=== PATIENT | male | born 1980 | race Caucasian/White ===

== ENCOUNTER 2017-10-22 14:14 | Emergency (ER) | payer BC ==
--- NOTE | 2017-10-22 16:11 | RAD REPORT ---
EXAM DESCRIPTION: RAD - Lumbar Spine 3 Views - 10/22/2017 3:17 pm CLINICAL HISTORY: Back pain, twisting injury COMPARISON: None. FINDINGS: A three-view lumbar spine examination was performed. Lumbar bodies are normal in height an d alignment. No fracture or acute bony process seen. No lumbar disc space narrowing seen. There is di sc space narrowing and endplate spurring at the T11-12 level. No SI joint abnormality. No pars defect s identified. IMPRESSION: No lumbar spine abnormality seen. Disc and endplate degenerative change at T11-12.
--- NOTE | 2017-10-22 17:35 | ER ---
Nurse's Notes [facility] Name: Alfie Luque Age: 37 yrs Sex: Male : 1980 Arrival Date: 10/22/2017 Time: 14:16 Bed 30 Private MD: Domenica Knight H Diagnosis: Low back pain;Sciatica, left side Presentation: 10/22 14:31 Presenting complaint: Patient states: last night i was doing cat box and twisted and hj felt pain on my lower back; denies tingling, numbness on legs;. Transition of care: patient was not received from another setting of care. Onset of symptoms was October 22, 2017. Care prior to arrival: None. 14:31 Method Of Arrival: Ambulatory 14:31 Acuity: LAKEISHA 4 hj Triage Assessment: 14:32 General: Appears in no apparent distress. uncomfortable, Behavior is calm, cooperative, hj appropriate for age. Pain: Complains of pain in left low back and right low back. Musculoskeletal: Circulation, motion, and sensation intact. Historical: - Allergies: 14:32 NKDA; hj - Home Meds: 14:32 None [Active]; hj - PMHx: 14:32 None; hj - PSHx: 14:32 oral; hj - Immunization history:: Flu vaccine is up to date. - Social history:: Smoking status: Patient uses tobacco products, smokes one-half pack cigarettes per day. - Family history:: not pertinent. Screenin:30 Abuse screen: Denies threats or abuse. Nutritional screening: No deficits noted. kb1 Tuberculosis screening: No symptoms or risk factors identified. Fall Risk None identified. Assessment: 16:28 General: Appears uncomfortable, Behavior is calm, cooperative. Pain: Complains of pain kb1 in lower back, left leg. Neuro: Level of Consciousness is awake, alert, obeys commands, Oriented to person, place, time, situation. Cardiovascular: Patient's skin is warm and dry. Respiratory: Respiratory effort is even, unlabored, Respiratory pattern is regular, symmetrical. GI: No signs and/or symptoms were reported involving the gastrointestinal system. : No signs and/or symptoms were reported regarding the genitourinary system. Musculoskeletal: Reports pain in lower back, shooting down left leg. Injury Description: reports that he bent over and reached for something and felt a sharp pain in his back. 17:42 Reassessment: Patient and/or family updated on plan of care and expected duration. Pain kb1 level reassessed. Patient is alert, oriented x 3, equal unlabored respirations, skin warm/dry/pink. Vital Signs: 14:33 BP 156 / 97; Pulse 115; Resp 18; Temp 98.2(TE); Pulse Ox 97% on R/A; Weight 106.59 kg; hj Height 5 ft. 6 in. (167.64 cm); Pain 10/10; 16:31 BP 134 / 92; Pulse 114; Resp 20; Pulse Ox 98% ; kb1 18:10 BP 136 / 79; Pulse 107; Resp 18; Pulse Ox 98% ; kb1 14:33 Body Mass Index 37.93 (106.59 kg, 167.64 cm) ED Course: 14:16 Patient arrived in ED. rg4 14:16 Domenica Knight DO is Private Physician. rg4 14:31 Triage completed. hj 14:33 Arm band placed on left wrist. hj 15:07 Patient moved to radiology via wheelchair. 1 15:14 X-ray completed. Patient tolerated procedure well. Patient moved back from radiology. 1 16:22 Glenn Clemente MD is Attending Physician. [facility] 16:28 Cinthia Hines, SALVADOR is Primary Nurse. kb1 16:30 Patient has correct armband on for positive identification. Bed in low position. Call kb1 light in reach. Side rails up X 1. NIBP on. 16:30 No provider procedures requiring assistance completed. kb1 17:34 Domenica Knight DO is Referral Physician. [facility] 18:10 Patient did not have IV access during this emergency room visit. kb1 Administered Medications: 17:41 Drug: TORadol 60 mg Route: IM; Site: right deltoid; kb1 18:09 Follow up: Response: No adverse reaction; Pain is decreased kb1 Outcome: 17:35 Discharge ordered by . lalo 18:10 Discharged to home ambulatory. kb1 18:10 Condition: stable 18:10 Discharge instructions given to patient, Instructed on discharge instructions, follow up and referral plans. medication usage, Demonstrated understanding of instructions, follow-up care, medications, Prescriptions given X 4. 18:13 Patient left the ED. kb1 Signatures: Glenn Clemente MD MD cha Harvey, Martha 1 Dwayne Mendoza, RN RN Laura Serrato 4 Cinthia Hines RN RN kb1 Corrections: (The following items were deleted from the chart) 14:35 14:33 Pulse 120bpm; Resp 18bpm; Pulse Ox 97% RA; Temp 98.2F Temporal; 106.59 kg; Height hj 5 ft. 6 in.; BMI: 37.9; Pain 10/10; hj 14:36 14:33 Pulse 115bpm; Resp 18bpm; Pulse Ox 97% RA; Temp 98.2F Temporal; 106.59 kg; Height hj 5 ft. 6 in.; BMI: 37.9; Pain 10/10; hj
--- NOTE | 2017-10-22 17:35 | EDPHYS ---
Physician Documentation [facility] Name: Alfie Luque Age: 37 yrs Sex: Male : 1980 Arrival Date: 10/22/2017 Time: 14:16 Bed 30 Private MD: Domenica Knight H ED Physician Glenn Clemente HPI: 10/22 17:30 This 37 yrs old Male presents to ER via Ambulatory with complaints of Back lalo Pain. 17:30 The patient presents with pain that is acute. The symptoms are located in the low back, lalo lumbar area. Onset: The symptoms/episode began/occurred just prior to arrival, this morning. The pain radiates to the left low back and left mid back. Associated signs and symptoms: The patient has no apparent associated signs or symptoms. The problem was sustained when lifting from twisting. Modifying factors: The patient symptoms are alleviated by remaining still, rest, specific position, the patient symptoms are aggravated by any movement, bending, lifting, movement. Severity of symptoms: At their worst the symptoms were mild, in the emergency department the symptoms are unchanged. The patient has not experienced similar symptoms in the past. Historical: - Allergies: 14:32 NKDA; hj - Home Meds: 14:32 None [Active]; hj - PMHx: 14:32 None; hj - PSHx: 14:32 oral; hj - Immunization history:: Flu vaccine is up to date. - Social history:: Smoking status: Patient uses tobacco products, smokes one-half pack cigarettes per day. - Family history:: not pertinent. ROS: 17:30 Constitutional: Negative for fever, chills, and weight loss, Eyes: Negative for injury, lalo pain, redness, and discharge, ENT: Negative for injury, pain, and discharge, Neck: Negative for injury, pain, and swelling, Cardiovascular: Negative for chest pain, palpitations, and edema, Respiratory: Negative for shortness of breath, cough, wheezing, and pleuritic chest pain, Abdomen/GI: Negative for abdominal pain, nausea, vomiting, diarrhea, and constipation, : Negative for injury, bleeding, discharge, and swelling, MS/Extremity: Negative for injury and deformity, Skin: Negative for injury, rash, and discoloration, Neuro: Negative for headache, weakness, numbness, tingling, and seizure, Psych: Negative for depression, anxiety, suicide ideation, homicidal ideation, and hallucinations, Allergy/Immunology: Negative for hives, rash, and allergies, Endocrine: Negative for neck swelling, polydipsia, polyuria, polyphagia, and marked weight changes, Hematologic/Lymphatic: Negative for swollen nodes, abnormal bleeding, and unusual bruising. 17:30 Back: Positive for decreased range of motion, pain at rest, pain with movement, radiated pain, of the left low back. Exam: 17:30 Constitutional: This is a well developed, well nourished patient who is awake, alert, lalo and in no acute distress. Head/Face: Normocephalic, atraumatic. Eyes: Pupils equal round and reactive to light, extra-ocular motions intact. Lids and lashes normal. Conjunctiva and sclera are non-icteric and not injected. Cornea within normal limits. Periorbital areas with no swelling, redness, or edema. ENT: Nares patent. No nasal discharge, no septal abnormalities noted. Tympanic membranes are normal and external auditory canals are clear. Oropharynx with no redness, swelling, or masses, exudates, or evidence of obstruction, uvula midline. Mucous membranes moist. Neck: Trachea midline, no thyromegaly or masses palpated, and no cervical lymphadenopathy. Supple, full range of motion without nuchal rigidity, or vertebral point tenderness. No Meningismus. Chest/axilla: Normal chest wall appearance and motion. Nontender with no deformity. No lesions are appreciated. Cardiovascular: Regular rate and rhythm with a normal S1 and S2. No gallops, murmurs, or rubs. Normal PMI, no JVD. No pulse deficits. Respiratory: Lungs have equal breath sounds bilaterally, clear to auscultation and percussion. No rales, rhonchi or wheezes noted. No increased work of breathing, no retractions or nasal flaring. Abdomen/GI: Soft, non-tender, with normal bowel sounds. No distension or tympany. No guarding or rebound. No evidence of tenderness throughout. Male : Normal genitalia with no discharge or lesions. Skin: Warm, dry with normal turgor. Normal color with no rashes, no lesions, and no evidence of cellulitis. MS/ Extremity: Pulses equal, no cyanosis. Neurovascular intact. Full, normal range of motion. Neuro: Awake and alert, GCS 15, oriented to person, place, time, and situation. Cranial nerves II-XII grossly intact. Motor strength 5/5 in all extremities. Sensory grossly intact. Cerebellar exam normal. Normal gait. Psych: Awake, alert, with orientation to person, place and time. Behavior, mood, and affect are within normal limits. 17:30 Back: pain, that is moderate, ROM is decreased, normal spinal alignment noted, CVA tenderness, is absent, muscle spasm, is appreciated in the left low back, left mid back, right mid back and right low back. Vital Signs: 14:33 BP 156 / 97; Pulse 115; Resp 18; Temp 98.2(TE); Pulse Ox 97% on R/A; Weight 106.59 kg; hj Height 5 ft. 6 in. (167.64 cm); Pain 10/10; 16:31 BP 134 / 92; Pulse 114; Resp 20; Pulse Ox 98% ; kb1 18:10 BP 136 / 79; Pulse 107; Resp 18; Pulse Ox 98% ; kb1 14:33 Body Mass Index 37.93 (106.59 kg, 167.64 cm) MDM: 16:24 Patient medically screened. [facility] 17:30 Data reviewed: vital signs, nurses notes, lab test result(s), radiologic studies, plain lalo films. 10/22 17:40 Order name: Urine Dipstick--Ancillary (enter results) 10/22 17:52 Order name: Urine Dipstick-Ancillary [facility] 10/22 15:03 Order name: XRAY Lumbar Spine (3 Views) nm 10/22 16:12 Order name: RAD; Complete Time: 17:28 [facility] 10/22 16:55 Order name: Urine Dipstick-Ancillary (obtain specimen); Complete Time: 17:38 Administered Medications: 17:41 Drug: TORadol 60 mg Route: IM; Site: right deltoid; kb1 18:09 Follow up: Response: No adverse reaction; Pain is decreased kb1 Disposition: 10/22/17 17:35 Discharged to Home. Impression: Low back pain, Sciatica, left side. - Condition is Stable. - Discharge Instructions: Back Pain, Adult, Musculoskeletal Pain, Sciatica, Back Injury Prevention, [id number], Back Pain, Adult, [id number], Sciatica, [id number]. - Prescriptions for Ibuprofen 600 mg Oral Tablet - take 1 tablet by ORAL route every 6 hours As needed take with food; 20 tablet. Tylenol- Codeine #3 300-30 mg Oral Tablet - take 2 tablet by ORAL route every 6 hours As needed; 30 tablet. Valium 5 mg Oral Tablet - take 1 tablet by ORAL route every 8 hours As needed; 20 tablet. Medrol (Bandar) 4 mg Oral Tablets, Dose Pack - take 1 tablet by ORAL route as directed - follow package instructions; 1 packet. - Medication Reconciliation Form, Thank You Letter, Antibiotic Education, Prescription Opioid Use form. - Follow up: Domenica Knight DO; When: 2 - 3 days; Reason: Recheck today's complaints, Continuance of care, Re-evaluation by your physician. - Problem is new. - Symptoms have improved. Signatures: Dispatcher [employer] EDGlenn Gonzalez MD MD cha Williams, Irene RN SALVADOR iw Dwayne Mendoza RN Cinthia Reyna RN RN kb1
[2017-10-22 17:51] LABS: Urine Blood NEGATIVE (NEG); Urine Glucose NEGATIVE (NEG); Urine Protein TRACE (NEG); Urine Specific Gravity 1.025 (1.005-1.030)
[2017-10-22] MEDS ORDERED: KETOROLAC 30 MG/ML INJ ONE (17:57)
== END 2017-10-22 18:13 | disposition home or self-care (01) ==
LOC: ER 14:14
DX: M54.32 Sciatica, left side; M54.5 Low back pain
CPT/HCPCS: 72100; 81003; 96372; 99283

== ENCOUNTER 2018-05-14 12:26 | Inpatient (IN) | payer BC ==
[2018-05-14] MEDS ORDERED: IBUPROFEN 400 MG TAB ONE ×2 (13:03→22:51)
[2018-05-14] MEDS ORDERED: IBUPROFEN 200 MG TAB PO ONE ×2 (13:03→22:51)
[2018-05-14] MEDS ORDERED: ACETAMINOPHEN 325 MG TABLET ONE (13:03)
--- NOTE | 2018-05-14 14:53 | RAD REPORT ---
EXAM DESCRIPTION: CT - Head Brain Wo Cont - 05/14/2018 2:35 pm CLINICAL HISTORY: Fever, headache COMPARISON: None. TECHNIQUE: Axial 5 mm thick images of the head were obtained without IV contrast. All CT scans are performed using dose optimization technique as appropriate and may include automated exposure control or mA/KV adjustment according to patient size. FINDINGS: No intracranial hemorrhage, mass, edema or shift of mid-line structures. No acute infarcti on changes seen. No abnormal extra-axial fluid collections. No effacement of the ventricles or basila r cisterns. Cerebral edema is not suspected. Relative increase in density along the tentorium is a sy mmetric pattern in a normal variant. Hemorrhage is not suspected. Mastoid air cells and visualized portions of the paranasal sinuses are clear. No acute bony findings. IMPRESSION: Negative non-contrast CT head examination for acute or significant finding.
[2018-05-14] MEDS ORDERED: ONDANSETRON 4 MG/2 ML VIAL ONE (14:56)
[2018-05-14] MEDS ORDERED: NA CHLORIDE 0.9% 1,000 ML ONE ×3 (14:56→21:05)
[2018-05-14 15:17] LABS: Absolute Lymphocytes (CBC) 0.6 K/uL (0.7-4.9); Absolute Monocytes 0.4 K/uL (0.1-1.3); Absolute Neutrophil 2.2 K/uL (1.8-8.0); Eosinophils % 0.1 % (0-4.4); Hematocrit 45.8 % (39.6-49.0); Lymphocytes % 19.3 % (15.3-44.8); MCH 31.4 pg (27.0-35.0); MCV 90.3 fL (80-100); Monocytes % 12.9 % (3.3-12.3); RBC Red Blood Cell Count 5.07 M/uL (4.33-5.43)
[2018-05-14 15:27] LABS: Albumin 3.9 g/dL (3.4-5.0); Bilirubin Direct 0.2 mg/dL (0-0.2); Bilirubin Total 0.8 mg/dL (0.2-1.0); Potassium 4.4 mmol/L (3.5-5.1); Protein, Total 8.2 g/dL (6.4-8.2)
[2018-05-14] MEDS ORDERED: MORPHINE 4 MG/ML SYR ONE (16:17)
[2018-05-14] MEDS ORDERED: LIDOCAINE 2% MPF 5 ML VIAL ONE ×2 (17:42→18:06)
[2018-05-14] MEDS ORDERED: HYDROMORPHONE HCL 0.5 MG/0.5 ML INJ ONE ×2 (18:26→22:28)
[2018-05-14 19:04] LABS: CSF Glucose 51 mg/dL (40-70)
[2018-05-14 19:34] LABS: Appearance CLEAR (CLEAR); Body Fluid Source CSF; Color of fluid Colorless (COLORLESS)
[2018-05-14 19:36] LABS: Body Fluid WBC 2 /mm^3
[2018-05-14 19:38] LABS: Appearance CLEAR (CLEAR); Body Fluid Source CSF; Body Fluid WBC 2 /mm^3; Color of fluid Colorless (COLORLESS); Fluid Total Volume 5.1 ml
--- NOTE | 2018-05-14 20:42 | RAD REPORT ---
EXAM DESCRIPTION: RAD - Chest Pa And Lat (2 Views) - 05/14/2018 8:37 pm CLINICAL HISTORY: fever, cough Chest pain. COMPARISON: CHEST PA AND LAT 2 VIEW dated 06/13/2013 FINDINGS: The lungs are clear. The heart is normal in size. No displaced fractures. IMPRESSION: No acute or concerning finding suspected.
[2018-05-14 20:59] LABS: Urine Blood NEGATIVE (NEG); Urine Glucose NEGATIVE (NEG); Urine Protein 1+ (NEG); Urine pH 6.5 (5.0-7.0)
--- NOTE | 2018-05-14 21:40 | ER ---
Nurse's Notes [facility] Name: Alfie Luqeu Age: 38 yrs Sex: Male : 1980 Arrival Date: 05/14/2018 Time: 12:30 Bed 20 Private MD: Domenica Knight H Diagnosis: Acute Febrile Illness;Headache Presentation: 05/14 12:58 Presenting complaint: Patient states: Body aches, fever, headache, cough since Thursday. aj Reports fever responds well to antipyretics. Last Tylenol at 0400 this AM. Transition of care: patient was not received from another setting of care. Onset of symptoms was May 10, 2018. Risk Assessment: Do you want to hurt yourself or someone else? Patient reports no desire to harm self or others. Initial Sepsis Screen: Does the patient meet any 2 criteria? No. Patient's initial sepsis screen is negative. Does the patient have a suspected source of infection? No. Patient's initial sepsis screen is negative. Care prior to arrival: None. 12:58 Method Of Arrival: Ambulatory 12:58 Acuity: LAKEISHA 4 aj Triage Assessment: 13:00 Headache History: The patient has had previous headaches. General: Appears in no aj apparent distress. comfortable, Behavior is calm, cooperative, appropriate for age. Pain: Complains of pain in face and scalp. EENT: Reports nasal congestion nasal discharge. Neuro: Level of Consciousness is awake, alert, obeys commands, Oriented to person, place, time, situation, Appropriate for age Supervisor Grower are equal bilaterally Moves all extremities. Full function Gait is steady, Speech is normal, Facial symmetry appears normal, Pupils are PERRLA, Reports headache. Respiratory: Reports cough that is Airway is patent Trachea midline Respiratory effort is even, unlabored, Respiratory pattern is regular, symmetrical. Derm: Skin is intact, is healthy with good turgor, Skin is pink, warm \T\ dry. normal. 05/15 00:53 Pain: Pain began 2-3 days ago. Also complains of sleeplessness. ao Historical: - Allergies: 05/14 13:00 NKDA; aj - Home Meds: 13:00 None [Active]; aj - PMHx: 13:00 None; aj - PSHx: 13:00 None; aj - Immunization history:: Adult Immunizations up to date. - Social history:: Smoking status: Patient/guardian denies using tobacco. - Ebola Screening: : Patient negative for fever greater than or equal to 101.5 degrees Fahrenheit, and additional compatible Ebola Virus Disease symptoms Patient denies exposure to infectious person Patient denies travel to an Ebola-affected area in the 21 days before illness onset No symptoms or risks identified at this time. Screenin:37 Abuse screen: Denies threats or abuse. Denies injuries from another. Nutritional iw screening: No deficits noted. Tuberculosis screening: No symptoms or risk factors identified. Fall Risk IV access (20 points). Assessment: 14:00 General: Appears in no apparent distress. uncomfortable, Behavior is calm, cooperative. iw General: Reports fever for > 3 days, feeling ill for fatigue for. Pain: Complains of pain in head Pain currently is 5 out of 10 on a pain scale. Neuro: Level of Consciousness is awake, alert, obeys commands, Oriented to person, place, time, situation, Moves all extremities. Full function. Cardiovascular: Patient's skin is warm and dry. Respiratory: Reports cough that is non-productive, dry, Respiratory effort is even, unlabored, Respiratory pattern is regular, symmetrical. GI: Patient currently denies diarrhea, nausea, vomiting. : Denies burning with urination. Derm: Skin is intact, is healthy with good turgor. Musculoskeletal: Range of motion: intact in all extremities. 15:28 Reassessment: Patient appears in no apparent distress at this time. Patient and/or iw family updated on plan of care and expected duration. Pain level reassessed. Patient is alert, oriented x 3, equal unlabored respirations, skin warm/dry/pink. 16:30 Reassessment: Patient appears in no apparent distress at this time. Patient and/or em family updated on plan of care and expected duration. Pain level reassessed. Patient is alert, oriented x 3, equal unlabored respirations, skin warm/dry/pink. 17:40 Reassessment: Patient appears in no apparent distress at this time. Patient and/or em family updated on plan of care and expected duration. Pain level reassessed. Patient is alert, oriented x 3, equal unlabored respirations, skin warm/dry/pink. 18:58 Reassessment: Patient appears in no apparent distress at this time. Patient and/or em family updated on plan of care and expected duration. Pain level reassessed. Patient is alert, oriented x 3, equal unlabored respirations, skin warm/dry/pink. rates pain 10/10. 19:15 Reassessment: Patient appears in no apparent distress at this time. Patient and/or cc3 family updated on plan of care and expected duration. Pain level reassessed. Patient is alert, oriented x 3, equal unlabored respirations, skin warm/dry/pink. Received this male patient from morning shift [facility] Wally as a case of headache and fever; LP was done as endorsed, patient lying comfortably in bed in supine position; with IV cannula gauge 20 at the right ACV saline locked. 20:49 Reassessment: Patient appears in no apparent distress at this time. Patient and/or cc3 family updated on plan of care and expected duration. Pain level reassessed. Patient is alert, oriented x 3, equal unlabored respirations, skin warm/dry/pink. 21:50 Reassessment: Discharge on hold for patient wants to have pain medication first, Dr. ryan Cross and JOHANNA Garay informed. 22:37 Reassessment: Patient appears in no apparent distress at this time. Patient and/or cc3 family updated on plan of care and expected duration. Pain level reassessed. Patient is alert, oriented x 3, equal unlabored respirations, skin warm/dry/pink. 23:19 Reassessment: Patient appears in no apparent distress at this time. Patient and/or cc3 family updated on plan of care and expected duration. Pain level reassessed. Patient is alert, oriented x 3, equal unlabored respirations, skin warm/dry/pink. temperature of 101.4 F, informed Dr. Cross new order was made and said he'll cancel the discharge order as of the meantime. 05/15 00:30 Reassessment: Patient appears in no apparent distress at this time. Patient and/or cc3 family updated on plan of care and expected duration. Pain level reassessed. Patient is alert, oriented x 3, equal unlabored respirations, skin warm/dry/pink. was about to put the patient on the monitor with ECG leads on for tachycardia monitoring explained but patient and relative refused and got irritated and said he wants another nurse, informed charge nurse Juliane and handed over the patient to SALVADOR Dunn. 00:48 Reassessment: Was notified by SALVADOR Alvarez that patient was unhappy with her and wanted ao a different nurse. Spoke to patient and patient is upset with nurse and ED durations. Patient got in the ED with fever arround 1200 on the 12th and had to stay with no changes in his fever. Charge nurse was notified os patient concerns. Dr Cross was also notified by charge nurse. Dr Cross to admitted patient o the hospital due to fever not coming down. Vital Signs: 05/14 13:00 BP 116 / 90; Pulse 133; Resp 20; Temp 100.6; Pulse Ox 98% on R/A; Weight 104.33 kg; aj Height 5 ft. 6 in. (167.64 cm); 14:12 BP 123 / 78; Pulse 127; Resp 18; Temp 99.3(O); Pulse Ox 98% on R/A; Pain 5/10; iw 15:15 BP 125 / 86; Pulse 109; Resp 18; Pulse Ox 98% on R/A; Pain 5/10; iw 16:30 BP 114 / 60; Pulse 110; Resp 16; Pulse Ox 97% on R/A; Pain 5/10; iw 17:00 BP 115 / 68; Pulse 102; Resp 18; Pulse Ox 99% on R/A; em 18:23 BP 113 / 83; Pulse 102; Resp 16; Temp 98.6(O); Pulse Ox 99% on R/A; Pain 7/10; em 19:30 BP 128 / 80; Pulse 100; Resp 20 S; Temp 98.3(O); Pulse Ox 100% on R/A; Pain 4/10; cc3 20:07 BP 116 / 78; Pulse 102; Resp 20 S; Pulse Ox 98% on R/A; cc3 21:45 BP 114 / 90; Pulse 117; Resp 20 S; Pulse Ox 100% on R/A; cc3 22:37 BP 114 / 76; Pulse 124; Resp 21 S; Temp 99.8(O); Pulse Ox 100% on R/A; cc3 23:19 BP 162 / 95; Pulse 116; Resp 21; Temp 101.4; Pulse Ox 97% on R/A; cc3 05/15 00:10 BP 129 / 74; Pulse 138; Resp 20 S; Temp 102.5(O); Pulse Ox 96% on R/A; cc3 00:59 Temp 99.9; bb 01:49 BP 114 / 77; Pulse 113; Resp 21; Pulse Ox 97% on R/A; ao 05/14 13:00 Body Mass Index 37.12 (104.33 kg, 167.64 cm) aj ED Course: 05/14 12:30 Patient arrived in ED. mr 12:31 Domenica Knight DO is Private Physician. mr 12:59 Triage completed. aj 13:00 Antipyretic given from triage as ordered by the ER provider. Arm band placed on left aj wrist. Patient placed in waiting room, on a stretcher. Labs ordered per protocol. 13:35 Chelsea Rojas, SALVADOR is Primary Nurse. iw 14:01 Brandon Garay PA is PHCP. [facility] 14:01 Honorio Ordonez MD is Attending Physician. jmm 14:34 CT completed. Patient tolerated procedure well. Patient moved to CT. Patient moved back me from CT. 14:35 CT Head Brain wo Cont In Process Unspecified. EDMS 14:37 Inserted saline lock: 20 gauge in right antecubital area, using aseptic technique. iw Blood collected. 18:20 Assist provider with lumbar puncture: Set up LP tray. Performed by Brandon SPENCER CSF em is clear. Puncture site dressed with band aid, Procedure was successful. Patient tolerated well. 20:38 Chest Pa And Lat (2 Views) XRAY In Process Unspecified. EDMS 21:39 Domenica Knight DO is Referral Physician. [facility] 05/15 00:48 Jorge Luis Harrington MD is Hospitalizing Provider. wa 00:53 Allergy band placed. Report received from SALVADOR Alvarez. Pulse ox on. NIBP on. ao 02:51 Patient admitted, IV remains in place. ao Administered Medications: 05/14 12:58 Drug: Motrin 600 mg Route: PO; aj 12:58 Drug: Tylenol 650 mg Route: PO; aj 14:57 Drug: NS 0.9% 1000 ml Route: IV; Rate: 1000 ml; Site: right antecubital; em 16:31 Follow up: IV Status: Completed infusion; IV Intake: 1000ml iw 16:19 Drug: morphine 4 mg Route: IVP; Site: right antecubital; iw 17:30 Follow up: Response: No adverse reaction; Pain is unchanged, physician notified em 16:19 Drug: NS 0.9% 1000 ml Route: IV; Rate: 1000 ml; Site: right antecubital; iw 18:31 Follow up: IV Status: Completed infusion; IV Intake: 1000ml em 18:34 Drug: Dilaudid 0.5 mg Route: IVP; Site: right antecubital; iw 19:08 Follow up: Response: No adverse reaction; Pain is decreased em 19:00 Not Given (Patient Refused): Zofran 4 mg IVP once; over 2 minutes em 21:00 Drug: NS 0.9% 1000 ml Route: IV; Rate: 1000 ml; Site: right antecubital; cc3 22:45 Follow up: Response: No adverse reaction; IV Status: Completed infusion; IV Intake: cc3 1000ml 22:25 Drug: Dilaudid 0.5 mg Route: IVP; Site: right antecubital; cc3 23:00 Follow up: Response: No adverse reaction; Pain is decreased cc3 22:45 Drug: Motrin 600 mg Route: PO; cc3 23:19 Follow up: Response: No adverse reaction; Temperature is increased cc3 23:29 Drug: Tylenol 1000 mg Route: PO; cc3 05/15 00:10 Follow up: Response: No adverse reaction; Temperature is increased cc3 Intake: 12 16:31 IV: 1000ml; Total: 1000ml. iw 18:31 IV: 1000ml; Total: 2000ml. em 22:45 IV: 1000ml; Total: 3000ml. cc3 Outcome: 21:40 Discharge ordered by MD. ordaz 05/15 00:49 Decision to Hospitalize by Provider. hi 02:51 Admitted to Tele accompanied by tech, room 403, with chart, Report called to juan josé Shaffer Rn 02:51 Condition: stable 02:51 Instructed on the need for admit. 02:51 Patient left the ED. ao Signatures: Dispatcher [employer] Katty Gillette RN Brandon Driver PA PA jmm Rivera, Mary mr DamonWally ortiz, DEEP TISSUE MASSAGE THERAPIST DEEP TISSUE MASSAGE THERAPIST Juliane Ren RN RN bb Williams, Irene, RN RN iw Ortiz, Alex, RN RN ao Christiano, German nj Tay, Jairo, MD MD wa Cordel, Kim cc3 Corrections: (The following items were deleted from the chart) 05/14 14:19 14:12 BP 123 / 78; Resp 18bpm; Pulse Ox 98% RA; iw iw 14:36 14:12 BP 123 / 78; Pulse 127bpm; Resp 18bpm; Pulse Ox 98% RA; iw iw 05/15 00:15 00:10 BP 129 / 74; Pulse 138bpm; Resp 20bpm; Spontaneous; Pulse Ox 96% RA; cc3 cc3
--- NOTE | 2018-05-14 21:41 | EDPHYS ---
Physician Documentation [facility] Name: Alfie Luque Age: 38 yrs Sex: Male : 1980 Arrival Date: 05/14/2018 Time: 12:30 Bed 20 Private MD: Domenica Knight H ED Physician Honorio Ordonez HPI: 05/14 14:10 This 38 yrs old Male presents to ER via Ambulatory with complaints of jmm Headache, Dizziness, Fever. 14:10 The patient complains of pain to the head. The patient describes the headache as jmm aching. Onset: The symptoms/episode began/occurred gradually, 4 day(s) ago. Associated signs and symptoms: Pertinent positives: fever, malaise, neck stiffness. Headache History: Denies prior headaches. This is a 38 year old male with no chronic medical conditions that presents to the ED with a generalized headache, fever, mild cough beginning approx 4 days ago. Patient states having little relief with OTC medications. Denies abdominal pain, denies shortness of rbeath. . Historical: - Allergies: 13:00 NKDA; aj - Home Meds: 13:00 None [Active]; aj - PMHx: 13:00 None; aj - PSHx: 13:00 None; aj - Immunization history:: Adult Immunizations up to date. - Social history:: Smoking status: Patient/guardian denies using tobacco. - Ebola Screening: : Patient negative for fever greater than or equal to 101.5 degrees Fahrenheit, and additional compatible Ebola Virus Disease symptoms Patient denies exposure to infectious person Patient denies travel to an Ebola-affected area in the 21 days before illness onset No symptoms or risks identified at this time. ROS: 14:10 Eyes: Negative for injury, pain, redness, and discharge, Cardiovascular: Negative for jmm chest pain, palpitations, and edema. 14:10 Abdomen/GI: Negative for abdominal pain, nausea, vomiting, diarrhea, and constipation, Back: Negative for injury and pain. 14:10 Constitutional: Positive for fever. 14:10 Respiratory: Positive for cough. 14:10 Neuro: Positive for headache. 14:10 All other systems are negative. Exam: 14:10 Constitutional: The patient appears alert, awake, uncomfortable. jmm 14:10 Head/Face: atraumatic. Eyes: EOMI, no conjunctival erythema appreciated Chest/axilla: jmm Normal chest wall appearance and motion. Cardiovascular: Regular rate and rhythm. No edema appreciated Respiratory: Normal respirations, no respiratory distress appreciated 14:10 Eyes: Extraocular movements: intact throughout, Conjunctiva: normal. 14:10 ENT: Posterior pharynx: erythema, that is mild. 14:10 Neck: ROM/movement: pain, that is mild, with flexion. 14:10 Cardiovascular: Rate: normal, Rhythm: regular, Pulses: no pulse deficits are appreciated. 14:10 Respiratory: the patient does not display signs of respiratory distress, Respirations: normal, Breath sounds: are clear throughout. 14:10 Abdomen/GI: Inspection: abdomen appears normal, Bowel sounds: normal, Palpation: abdomen is soft and non-tender, in all quadrants. 14:10 Back: ROM is normal. 14:10 Musculoskeletal/extremity: ROM: intact in all extremities. 14:10 Skin: Appearance: Color: normal in color. 14:10 Neuro: Orientation: is normal, Mentation: is normal, Memory: is normal. 14:10 Psych: Behavior/mood is pleasant, cooperative. Vital Signs: 13:00 BP 116 / 90; Pulse 133; Resp 20; Temp 100.6; Pulse Ox 98% on R/A; Weight 104.33 kg; aj Height 5 ft. 6 in. (167.64 cm); 14:12 BP 123 / 78; Pulse 127; Resp 18; Temp 99.3(O); Pulse Ox 98% on R/A; Pain 5/10; iw 15:15 BP 125 / 86; Pulse 109; Resp 18; Pulse Ox 98% on R/A; Pain 5/10; iw 16:30 BP 114 / 60; Pulse 110; Resp 16; Pulse Ox 97% on R/A; Pain 5/10; iw 17:00 BP 115 / 68; Pulse 102; Resp 18; Pulse Ox 99% on R/A; em 18:23 BP 113 / 83; Pulse 102; Resp 16; Temp 98.6(O); Pulse Ox 99% on R/A; Pain 7/10; em 19:30 BP 128 / 80; Pulse 100; Resp 20 S; Temp 98.3(O); Pulse Ox 100% on R/A; Pain 4/10; cc3 20:07 BP 116 / 78; Pulse 102; Resp 20 S; Pulse Ox 98% on R/A; cc3 21:45 BP 114 / 90; Pulse 117; Resp 20 S; Pulse Ox 100% on R/A; cc3 22:37 BP 114 / 76; Pulse 124; Resp 21 S; Temp 99.8(O); Pulse Ox 100% on R/A; cc3 23:19 BP 162 / 95; Pulse 116; Resp 21; Temp 101.4; Pulse Ox 97% on R/A; cc3 05/15 00:10 BP 129 / 74; Pulse 138; Resp 20 S; Temp 102.5(O); Pulse Ox 96% on R/A; cc3 00:59 Temp 99.9; bb 01:49 BP 114 / 77; Pulse 113; Resp 21; Pulse Ox 97% on R/A; ao 05/14 13:00 Body Mass Index 37.12 (104.33 kg, 167.64 cm) aj MDM: 05/14 14:21 Patient medically screened. [facility] 20:17 Data reviewed: vital signs, nurses notes. Counseling: I had a detailed discussion with jmm the patient and/or guardian regarding: the historical points, exam findings, and any diagnostic results supporting the discharge/admit diagnosis. 21:35 Data reviewed: lab test result(s), radiologic studies, CT scan. Counseling: I had a [facility] detailed discussion with the patient and/or guardian regarding: the historical points, exam findings, and any diagnostic results supporting the discharge/admit diagnosis, lab results, radiology results, the need for outpatient follow up, to return to the emergency department if symptoms worsen or persist or if there are any questions or concerns that arise at home. ED course: Dr. Cross at bedside evaluated the patient.. 05/15 00:50 Special discussion: at d/c, pt noted still febrile and tachycardic after several rounds wa of fluids and antipyretics. will admit for obs and further testing. Dr. Cross. 05/14 12:58 Order name: Strep; Complete Time: 14:22 aj 05/14 12:58 Order name: Flu; Complete Time: 14:22 aj 05/14 14:09 Order name: Throat Culture EDWI 05/14 14:22 Order name: Basic Metabolic Panel; Complete Time: 15:35 jm 05/14 14:22 Order name: CBC with Diff; Complete Time: 15:[address] [facility] 05/14 14:22 Order name: Creatinine for Radiology; Complete Time: 15:[address] [facility] 05/14 14:22 Order name: Hepatic Function; Complete Time: 15:[address] [facility] 05/14 14:22 Order name: Lipase; Complete Time: 15:[address] [facility] 05/14 14:22 Order name: Lactate; Complete Time: 18:[address] [facility] 05/14 14:22 Order name: Procalcitonin; Complete Time: 15:[address] [facility] 05/14 14:49 Order name: Blood Culture Adult (2) [facility] 05/14 14:50 Order name: Blood Culture [facility] 05/14 15:52 Order name: CSF Bacterial Antigens (tube 1); Complete Time: 19:[address] [facility] 05/14 15:52 Order name: Csf Culture [facility] 05/14 14:23 Order name: CT Head Brain wo Cont; Complete Time: 14:[address] [facility] 05/14 15:52 Order name: Fluid Cell Count,Body; Complete Time: 19:[address] [facility] 05/14 15:52 Order name: Spinal Fluid Profile; Complete Time: 19:[address] [facility] 05/14 20:13 Order name: [place] Screen Profile; Complete Time: 21:[address] [facility] 05/14 20:13 Order name: Chest Pa And Lat (2 Views) XRAY; Complete Time: 20:[address] [facility] 05/14 20:54 Order name: Urine Dipstick--Ancillary (enter results); Complete Time: 21:11 dc 05/14 14:22 Order name: IV Saline Lock; Complete Time: 14:[address] [facility] 05/14 14:22 Order name: Labs collected and sent; Complete Time: 14:[address] [facility] 05/14 14:23 Order name: Lumbar Puncture Setup; Complete Time: 16:[address] [facility] 05/14 15:52 Order name: LP Consents; Complete Time: 16:[address] [facility] 05/14 20:13 Order name: Urine Dipstick-Ancillary (obtain specimen); Complete Time: 20:[address] [facility] 05/15 00:58 Order name: CONS Pharmacy Consult EDWI 05/15 00:58 Order name: Regular EDMS Administered Medications: 05/14 12:58 Drug: Motrin 600 mg Route: PO; aj 12:58 Drug: Tylenol 650 mg Route: PO; aj 14:57 Drug: NS 0.9% 1000 ml Route: IV; Rate: 1000 ml; Site: right antecubital; em 16:31 Follow up: IV Status: Completed infusion; IV Intake: 1000ml iw 16:19 Drug: morphine 4 mg Route: IVP; Site: right antecubital; iw 17:30 Follow up: Response: No adverse reaction; Pain is unchanged, physician notified em 16:19 Drug: NS 0.9% 1000 ml Route: IV; Rate: 1000 ml; Site: right antecubital; iw 18:31 Follow up: IV Status: Completed infusion; IV Intake: 1000ml em 18:34 Drug: Dilaudid 0.5 mg Route: IVP; Site: right antecubital; iw 19:08 Follow up: Response: No adverse reaction; Pain is decreased em 19:00 Not Given (Patient Refused): Zofran 4 mg IVP once; over 2 minutes em 21:00 Drug: NS 0.9% 1000 ml Route: IV; Rate: 1000 ml; Site: right antecubital; cc3 22:45 Follow up: Response: No adverse reaction; IV Status: Completed infusion; IV Intake: cc3 1000ml 22:25 Drug: Dilaudid 0.5 mg Route: IVP; Site: right antecubital; cc3 23:00 Follow up: Response: No adverse reaction; Pain is decreased cc3 22:45 Drug: Motrin 600 mg Route: PO; cc3 23:19 Follow up: Response: No adverse reaction; Temperature is increased cc3 23:29 Drug: Tylenol 1000 mg Route: PO; cc3 05/15 00:10 Follow up: Response: No adverse reaction; Temperature is increased cc3 Disposition: 13:07 Co-signature as Attending Physician, Honorio Ordonez MD. kdr Disposition: 05/15/18 00:49 Hospitalization ordered by Jorge Luis Harrington for Observation. Preliminary diagnosis are Acute Febrile Illness, Headache. - Bed requested for Telemetry/MedSurg (observation). - Status is Observation. ao - Condition is Stable. - Problem is new. - Symptoms have improved. UTI on Admission? No - Notes: Please follow up with your primary care provider in 2 to 3 days. Please return to the emergency department if your headache worsens, if you develop vomiting, if you have any other concerning symptoms. Signatures: Dispatcher [employer] EDMS Natali Stallworth RN RN mw Myers, Amanda RN Honorio Lopes MD MD kdr Mickail, Joel, PA PA [facility] Nelson, Wally, BELL STAFF BELL STAFF em Chelsea Rojas, RN SALVADOR iw Shaun Pruitt, RN Jairo Nix MD MD wa Cordel, Charlene cc3 Corrections: (The following items were deleted from the chart) 05/14 20:16 20:13 Constitutional: The patient appears alert, awake, uncomfortable, [facility] 23:25 21:40 05/14/2018 21:40 Discharged to Home. Impression: Viral Cephalgia. Condition is wa Stable. Forms are Medication Reconciliation Form, Thank You Letter, Antibiotic Education, Prescription Opioid Use. Follow up: Domenica Knight; When: 2 - 3 days; Reason: Recheck today's complaints, Continuance of care, Re-evaluation by your physician. [facility] 05/15 01:46 00:49 Hospitalization Ordered by Jorge Luis Harrington MD for Observation. Preliminary mw diagnosis is Acute Febrile Illness; Headache. Bed requested for Telemetry/MedSurg (observation). Status is Observation. Condition is Stable. Problem is new. Symptoms have improved. UTI on Admission? No. wa 02:51 01:46 05/15/2018 00:49 Hospitalization Ordered by Jorge Luis Harrington MD for Observation. ao Preliminary diagnosis is Acute Febrile Illness; Headache. Bed requested for Telemetry/MedSurg (observation). Status is Observation. Condition is Stable. Problem is new. Symptoms have improved. UTI on Admission? No. mw
[2018-05-14] MEDS ORDERED: ACETAMINOPHEN 500 MG TAB ONE (23:33)
[2018-05-15] MEDS ORDERED: ONDANSETRON 4 MG/2 ML VIAL IV PRN (00:55)
[2018-05-15] MEDS ORDERED: MORPHINE 2 MG/ML SYR IV PRN (00:55)
[2018-05-15] MEDS: NA CHLORIDE 0.9% 1,000 ML IV SCH ×3 (03:23→17:18)
[2018-05-15] MEDS ORDERED: HYDROCORTISONE SUC 100 MG INJ IV ONE ×2 (03:42→06:00)
[2018-05-15 04:40] VITALS: BMI 37.1
[2018-05-15 06:29] LABS: Absolute Lymphocytes (CBC) 0.4 K/uL (0.7-4.9); Absolute Monocytes 0.2 K/uL (0.1-1.3); Basophils % 0.8 % (0-1.3); Eosinophils % 0.3 % (0-4.4); Hematocrit 39.9 % (39.6-49.0); Lymphocytes % 25.7 % (15.3-44.8); MCH 31.8 pg (27.0-35.0); MPV 8.1 fL (7.6-11.3); Monocytes % 11.3 % (3.3-12.3); RBC Red Blood Cell Count 4.49 M/uL (4.33-5.43)
[2018-05-15 06:47] LABS: ALT/SGPT 35 U/L (12-78); AST/SGOT 39 U/L (15-37); Albumin 3.5 g/dL (3.4-5.0); Alkaline Phosphatase 72 U/L (45-117); BUN Blood Urea Nitrogen 8 mg/dL (7-18); Bicarbonate 27 mmol/L (21-32); Bilirubin Total 0.8 mg/dL (0.2-1.0); Glucose Level 119 mg/dL (74-106); Magnesium 2.5 mg/dL (1.8-2.4); Phosphorus 3.7 mg/dL (2.5-4.9); Sodium Level 138 mmol/L (136-145)
--- NOTE | 2018-05-15 08:40 | RAD REPORT ---
EXAM DESCRIPTION: CT - Chest Abdomen Pelvis W Cont - 05/15/2018 7:56 am CLINICAL HISTORY: Fever of unknown origin, cough, right lower quadrant abdominal pain COMPARISON: CT abdomen and pelvis April 2017 TECHNIQUE: Following dynamic enhancement using 100 milliliters nonionic IV contrast, axial imaging o f the chest, abdomen and pelvis was performed. Biphasic technique was utilized through the abdomen. Oral contrast was administered. All CT scans are performed using dose optimization technique as appropriate and may include automated exposure control or mA/KV adjustment according to patient size. FINDINGS: Lungs are clear of mass and infiltrate. No pleural effusion, pleural thickening or pneumot horax. No significant aortic or pulmonary arterial tree finding. Mediastinal and hilar regions show n o mass or abnormal lymphadenopathy. No chest wall mass or axillary lymphadenopathy. Trace amount of p ericardial thickening and/or fluid present. No thickening of the left ventricular myocardium. 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 The liver, spleen and pancreas show no suspicious findings. Gallbladder and biliary tree are unremark able. Gallstones can be occult on CT imaging. Symmetric renal function is seen with no mass or hydro nephrosis. Small renal cysts are present and there are nonobstructing caliceal calculi. No perinephri c stranding. No wall thickening of the urinary bladder. Prostate gland and seminal vesicles are sharif l range. No adrenal abnormalities. No dilated bowel loops or focal bowel wall thickening. No acute GI findings seen. Appendix is normal. No acute or destructive bony process. No significant vascular findings. IMPRESSION: No lung parenchymal abnormality. No mass or lymphadenopathy seen. Trace amount of pericardial thickening or fluid.Pericarditis or endocarditis are not excluded in this patient with FUO. No acute or suspicious findings in the abdomen or pelvis to explain fever or other symptom pattern. N onobstructing renal calculi are not likely acutely clinically significant.
[2018-05-15] MEDS: ACETAMINOPHEN 500 MG TAB PO PRN ×2 (09:00→20:15)
--- NOTE | 2018-05-15 10:44 | P.HP ---
Certification for Inpatient Patient admitted to: Observation With expected LOS: <2 Midnights Patient will require the following post-hospital care: None Practitioner: I am a practitioner with admitting privileges, knowledge of patient current condition, hospital course, and medical plan of care. Services: Services provided to patient in accordance with Admission requirements found in Title 42 Section 412.3 of the Code of Federal Regulations Patient History Date of Service: 05/15/18 Reason for admission: fever unknown etiology History of Present Illness: patient is a 38-year-old gentleman who came to the hospital with fever. His fever started on Thursday. He states he had temp of a 102. He has never had symptoms similar to this. His fever would not go away and he started taking antipyretics. His fever would fluctuate since that time. He has also had headache and neck pain. Patient came into the hospital for further evaluation last night. In the ER he had multiple diagnostic studies including chest x-ray and lab workup. Patient also had a spinal tap. His diagnostic studies and labs have been negative. His white count has gone down a little more this morning. We will admit him to the hospital for further workup. Allergies No Known Drug Allergies Allergy (Verified 05/15/18 02:05) Unknown Home Medications: NK [No Home Meds] 05/15/18 - Past Medical/Surgical History Has patient received pneumonia vaccine in the past: No Diabetic: No -: kideny stones -: bronchitis -: testicular sx - Family History Father Medical History: Heart disease - Social History Smoking Status: Current every day smoker Alcohol use: Yes CD- Drugs: No Caffeine use: Yes Place of Residence: Home Review of Systems 10-point ROS is otherwise unremarkable Physical Examination - Vital Signs Temperature: 98.4 F Blood Pressure: 110/73 Pulse: 98 Respirations: 18 Pulse Ox (%): 98 - Physical Exam General: Alert, In no apparent distress, Oriented x3 HEENT: Atraumatic, PERRLA, Mucous membr. moist/pink, EOMI, Sclerae nonicteric Neck: Supple, 2+ carotid pulse no bruit, No LAD, Without JVD or thyroid abnormality Respiratory: Clear to auscultation bilaterally, Normal air movement Cardiovascular: Regular rate/rhythm, Normal S1 S2 Gastrointestinal: Normal bowel sounds, Soft and benign, Non-distended, No tenderness Musculoskeletal: No clubbing, No swelling, No tenderness Integumentary: No rashes Neurological: Normal gait, Normal speech, Normal strength at 5/5 x4 extr, Normal tone, Normal affect Lymphatics: No axilla or inguinal lymphadenopathy - Studies Laboratory Data (last 24 hrs) 05/14/18 14:35: Creatinine 1.20 05/14/18 14:35: WBC 3.3 L, Hgb 15.9, Hct 45.8, Plt Count 198 05/14/18 14:35: Sodium 134 L, Potassium 4.4, BUN 9, Creatinine 1.20, Glucose 104 , Total Bilirubin 0.8, AST 40 H, ALT 39, Alkaline Phosphatase 79, Lipase 154 Microbiology Data (last 24 hrs): 05/14/18 18:00 Cerebral Spinal Fluid Gram Stain - Final 05/14/18 18:00 Cerebral Spinal Fluid CSF Bacterial Antigens (Tube 1) - Final 05/14/18 12:54 Throat Group A Streptococcus Rapid Screen - Final 05/14/18 12:54 Nasopharnyx Influenza Type A Antigen Screen - Final 05/14/18 12:54 Nasopharnyx Influenza Type B Antigen Screen - Final Assessment & Plan - Problems (Diagnosis) (1) Fever Current Visit: Yes Status: Acute (2) Abdominal pain Current Visit: Yes Status: Acute (3) Leukopenia Current Visit: Yes Status: Acute - Plan Plan: 1. Gentle hydration along with supportive care 2. pain control along with antipyretics 3. Hold off on any antibiotic at this time pending culture results 4. Spinal fluid with no significant elevation of white blood cells. 5. Check HIV status and check thyroid studies 6. GI and DVT prophylaxis Discharge Plan: Home Plan to discharge in: 24 Hours - Advance Directives Does patient have a Living Will: No Does patient have a Durable POA for Healthcare: No - Code Status/Comfort Care Code Status Assessed: Yes Code Status: Full Code Critical Care: No Time Spent Managing PTS Care (In Minutes): 50
[2018-05-15] MEDS: MORPHINE 4 MG/ML SYR IV PRN ×3 (13:10→21:44)
[2018-05-15] MEDS ORDERED: LOPERAMIDE HCL 2 MG CAPSULE PO PRN (17:34)
[2018-05-15] MEDS: TEMAZEPAM 15 MG CAP PO PRN (23:29)
[2018-05-16] MEDS: NA CHLORIDE 0.9% 1,000 ML IV SCH (02:35)
[2018-05-16] MEDS ORDERED: predniSONE 20 MG TAB PO ONE (03:47)
[2018-05-16] MEDS: ACETAMINOPHEN 500 MG TAB PO PRN (03:59)
[2018-05-16 11:01] LABS: Absolute Lymphocytes (CBC) 0.5 K/uL (0.7-4.9); Absolute Monocytes 0.1 K/uL (0.1-1.3); Absolute Neutrophil 1.7 K/uL (1.8-8.0); Basophils % 0.4 % (0-1.3); Hematocrit 40.3 % (39.6-49.0); Lymphocytes % 22.4 % (15.3-44.8); MCH 31.5 pg (27.0-35.0); MCV 88.6 fL (80-100); Monocytes % 5.7 % (3.3-12.3); RBC Red Blood Cell Count 4.55 M/uL (4.33-5.43)
[2018-05-16 11:15] LABS: ALT/SGPT 42 U/L (12-78); AST/SGOT 43 U/L (15-37); Albumin 3.5 g/dL (3.4-5.0); Alkaline Phosphatase 89 U/L (45-117); BUN Blood Urea Nitrogen 7 mg/dL (7-18); Bicarbonate 27 mmol/L (21-32); Bilirubin Total 0.4 mg/dL (0.2-1.0); Glucose Level 143 mg/dL (74-106); Potassium 4.2 mmol/L (3.5-5.1); Protein, Total 7.5 g/dL (6.4-8.2); Sodium Level 139 mmol/L (136-145)
[2018-05-16 11:34] LABS: Ferritin 881.6 ng/mL (26-388)
[2018-05-16] MEDS ORDERED: NA CHLORIDE 0.9% 0 ML ONE (12:44)
[2018-05-16] MEDS: HYDROCODONE/APAP 10/325 TAB PO PRN ×3 (14:00→22:15)
[2018-05-16 14:18] LABS: Blood Morphology Comment NOT SEEN (NOT SEEN); Platelet Estimate ADEQ; Urine White Blood Cell Casts OK
--- NOTE | 2018-05-16 18:29 | P.PN ---
Subjective Date of Service: 05/16/18 Chief Complaint: fever unknown etiology Patient seen and examined at bedside. Family at bedside. The patient febrile to 102.7 and tachycardic to 150 overnight. The patient states he does not feel well and feels weak. Upon further questioning he states that he does travel close to the 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 Review of Systems 10-point ROS is otherwise unremarkable Physical Examination - Vital Signs Temperature: 97.0 F Blood Pressure: 120/60 Pulse: 90 Respirations: 18 Pulse Ox (%): 96 - Physical Exam General: Alert, Mild distress HEENT: Atraumatic, PERRLA, EOMI Neck: Supple, JVD not distended Respiratory: Clear to auscultation bilaterally, Normal air movement Cardiovascular: Normal S1 S2, Irregular heart rate/rhythm (tachy) Gastrointestinal: Normal bowel sounds, No tenderness Musculoskeletal: No tenderness Integumentary: No rashes Neurological: Normal speech, Normal tone, Normal affect Lymphatics: No axilla or inguinal lymphadenopathy - Studies Microbiology Data (last 24 hrs): 05/14/18 18:00 Cerebral Spinal Fluid Gram Stain - Final 05/14/18 12:54 Throat Culture & Sensitivity - Final Medications List Reviewed: Yes Assessment And Plan - Plan Fever of unknown origin Patient with recurrent fevers, starting approximately 1 week ago. Fever resolves with acetaminophen, but recurs. Spinal fluid with no significant elevation of white blood cells were no growth. Will also add on West Nile virus testing 2 spinal type fluid. 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 Will evaluate patient with LDH, MANJU, RF, ankle, ferritin, HIV testing, CMP, LFTs. Will also do echo to evaluate for potential pericarditis/ endocarditis. Acetaminophen for fever. Hold antibiotics at this time, pending culture results. Abdominal pain: Resolved Leukopenia: Improving Will trend WBC count. Initially very leukopenic. This could be secondary to a viral infection that is also causing this fever. Will evaluate further with test was listed above. Time Spent Managing PTS Care (In Minutes): 50
[2018-05-16 22:47] LABS: Rheumatoid Factor NEG (NEG)
[2018-05-17] MEDS: TEMAZEPAM 15 MG CAP PO PRN ×2 (00:10→22:38)
[2018-05-17] MEDS: HYDROCODONE/APAP 10/325 TAB PO PRN ×4 (08:23→20:10)
--- NOTE | 2018-05-17 10:14 | EKG ---
Test Date: 2018-05-15 Test Time: 11:02:32 Steelworker: PRACHI MEASUREMENT RESULTS: Intervals: Rate: 88 NE: 164 QRSD: 82 QT: 370 QTc: 447 [place]: P: 48 NE: 164 QRS: 42 T: 22 INTERPRETIVE STATEMENTS: Normal sinus rhythm Normal ECG Compared to ECG 06/02/1997 17:35:00 No significant changes Electronically Signed On 05-17-18 10:13:44 CDT by Gage Bedoya
--- NOTE | 2018-05-17 11:08 | ECHO ---
HEIGHT: 5 ft 6 in WEIGHT: 230 lb 0 oz DATE OF STUDY: 05/17/[address]: 2-DIMENSIONAL: YES M.MODE: YES DOPPLER: YES COLOR FLOW: YES TDS: NO PORTABLE: NO DEFINITY: NO BUBBLE STUDY: NO DIAGNOSIS: CAT SCAN WITH TRACE PERICARDIAL FLUID, EVALUATE FOR PERICARDITIS AND ENDOCARDITIS. CARDIAC HISTORY: CATHERIZATION: NO SURGERY: NO PROSTHETIC VALVE: NO PACEMAKER: NO MEASUREMENTS (cm) DIASTOLIC (NORMALS) SYSTOLIC (NORMALS) IVSd 0.9 (0.6-1.2) LA Diam 3.5 (1.9-4.0) LVEF 57% LVIDd 4.7 (3.5-5.7) LVIDs 3.3 (2.0-3.5) %FS 30% LVPWd 0.9 (0.6-1.2) Ao Diam 2.9 (2.0-3.7) 2 DIMENSIONAL ASSESSMENT: RIGHT ATRIUM: NORMAL LEFT ATRIUM: NORMAL RIGHT VENTRICLE: NORMAL LEFT VENTRICLE: NORMAL TRICUSPID VALVE: NORMAL MITRAL VALVE: NORMAL PULMONIC VALVE: NORMAL AORTIC VALVE: NORMAL PERICARDIAL EFFUSION: NONE AORTIC ROOT: NORMAL LEFT VENTRICULAR WALL MOTION: NORMAL DOPPLER/COLOR FLOW: NORMAL COMMENTS: NORMAL 2D ECHOCARDIOGRAM WITH DOPPLER. NO PERICARDIAL EFFUSION. TECHNOLOGIST: KINGA OSUNA RDCS
--- NOTE | 2018-05-17 12:21 | P.PN ---
Subjective Date of Service: 05/17/18 Chief Complaint: fever unknown etiology Patient seen and examined at bedside. No Family at bedside. Case discussed with nurse. The patient afebrile overnight. Patient reports improvement. Sitting up in bed this morning. Review of Systems 10-point ROS is otherwise unremarkable Physical Examination - Vital Signs Temperature: 97.5 F Blood Pressure: 126/70 Pulse: 87 Respirations: 18 Pulse Ox (%): 98 - Physical Exam General: Alert, In no apparent distress HEENT: Atraumatic, PERRLA, EOMI Neck: Supple, JVD not distended Respiratory: Clear to auscultation bilaterally, Normal air movement Cardiovascular: Regular rate/rhythm, Normal S1 S2 Gastrointestinal: Normal bowel sounds, No tenderness Musculoskeletal: No tenderness Integumentary: No rashes Neurological: Normal speech, Normal tone, Normal affect Lymphatics: No axilla or inguinal lymphadenopathy - Studies Microbiology Data (last 24 hrs): 05/15/18 19:35 Sputum Gram Stain - Final 05/14/18 18:00 Cerebral Spinal Fluid Gram Stain - Final 05/14/18 12:54 Throat Culture & Sensitivity - Final Medications List Reviewed: Yes Assessment And Plan - Plan Fever of unknown origin: Afebrile overnight Patient with recurrent fevers, starting approximately 1 week ago. Fever resolves with acetaminophen, but recurs. Spinal fluid with no significant elevation of white blood cells were no growth. Will also add on West Nile virus testing 2 spinal type fluid. 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 LDH, MANJU, RF, ANCA testing, ferritin, HIV testing pending. ECHO: Normal Antipyretics prn fever. Hold antibiotics at this time, pending culture results. Abdominal pain: Resolved Leukopenia: Will trend WBC count. Initially very leukopenic. This could be secondary to a viral infection that is also causing this fever. Will evaluate further with test was listed above. Discharge Plan: Home Plan to discharge in: 24 Hours (If continues to be afebrile.)
[2018-05-17 13:26] LABS: Absolute Lymphocytes (CBC) 1.3 K/uL (0.7-4.9); Absolute Monocytes 0.4 K/uL (0.1-1.3); Absolute Neutrophil 1.4 K/uL (1.8-8.0); Basophils % 0.9 % (0-1.3); Eosinophils % 3.2 % (0-4.4); Hematocrit 38.6 % (39.6-49.0); MCH 31.9 pg (27.0-35.0); MCV 89.1 fL (80-100); MPV 7.9 fL (7.6-11.3); Monocytes % 11.6 % (3.3-12.3); RBC Red Blood Cell Count 4.33 M/uL (4.33-5.43)
[2018-05-17 13:40] LABS: ALT/SGPT 208 U/L (12-78); AST/SGOT 233 U/L (15-37); Albumin 3.3 g/dL (3.4-5.0); Alkaline Phosphatase 87 U/L (45-117); BUN Blood Urea Nitrogen 11 mg/dL (7-18); Bicarbonate 29 mmol/L (21-32); Bilirubin Total 0.5 mg/dL (0.2-1.0); Glucose Level 129 mg/dL (74-106); Potassium 3.7 mmol/L (3.5-5.1); Protein, Total 7.2 g/dL (6.4-8.2); Sodium Level 139 mmol/L (136-145)
[2018-05-17 16:58] LABS: HIV 1/2 Antibody Diff Not indicated.; HIV AG/AB 4TH GEN Non-reactive (Non-reactive)
[2018-05-18] MEDS: HYDROCODONE/APAP 10/325 TAB PO PRN ×4 (00:26→15:43)
[2018-05-18 04:18] LABS: HBsAG Nonreactive (Nonreactive); Hepatitis A IgM Antibody Nonreactive
[2018-05-18 13:13] LABS: Absolute Lymphocytes (CBC) 1.6 K/uL (0.7-4.9); Absolute Monocytes 0.4 K/uL (0.1-1.3); Absolute Neutrophil 2.2 K/uL (1.8-8.0); Basophils % 0.8 % (0-1.3); Eosinophils % 4.5 % (0-4.4); Hematocrit 40.4 % (39.6-49.0); Lymphocytes % 35.9 % (15.3-44.8); MCH 31.7 pg (27.0-35.0); MCV 89.2 fL (80-100); MPV 7.5 fL (7.6-11.3); Monocytes % 9.6 % (3.3-12.3); RBC Red Blood Cell Count 4.53 M/uL (4.33-5.43)
[2018-05-18 13:29] LABS: ALT/SGPT 178 U/L (12-78); AST/SGOT 101 U/L (15-37); Albumin 3.5 g/dL (3.4-5.0); Alkaline Phosphatase 91 U/L (45-117); BUN Blood Urea Nitrogen 13 mg/dL (7-18); Bicarbonate 30 mmol/L (21-32); Bilirubin Total 0.4 mg/dL (0.2-1.0); Glucose Level 117 mg/dL (74-106); Protein, Total 7.4 g/dL (6.4-8.2); Sodium Level 136 mmol/L (136-145)
[2018-05-18 14:10] VITALS: O2SAT 98
--- NOTE | 2018-05-18 18:56 | RAD REPORT ---
EXAM DESCRIPTION: us- UPPER EXTREMITY VENOUS UNILATE - 05/18/2018 6:30 pm CLINICAL HISTORY: Arm pain COMPARISON: None FINDINGS: Right internal jugular, subclavian, axillary, brachial, cephalic, basilic, radial and ulna r veins are compressible and demonstrate augmentation. Doppler demonstrates good flow IMPRESSION: Negative for thrombus involving the right upper extremity
--- NOTE | 2018-05-18 19:24 | P.DS ---
Admission Date: 05/17/18 Discharge Date: 05/18/18 Disposition: ROUTINE DISCHARGE Discharge Condition: GOOD Reason for Admission: fever unknown etiology Brief History of Present Illness: patient is a 38-year-old gentleman who came to the hospital with fever. His fever started on Thursday. He states he had temp of a 102. He has never had symptoms similar to this. His fever would not go away and he started taking antipyretics. His fever would fluctuate since that time. He has also had headache and neck pain. Patient came into the hospital for further evaluation last night. In the ER he had multiple diagnostic studies including chest x-ray and lab workup. Patient also had a spinal tap. His diagnostic studies and labs have been negative. His white count has gone down a little more this morning. We will admit him to the hospital for further workup. Hospital Course: (1) Fever: Patient was admitted for fever. He was given supportive care with IV fluids and antipruritics. Lab testing were done including spinal tap, HIV, hepatitis panel, echo and blood cultures which have all been negative. Autoimmune labs are currently pending. At the time of discharge, patient is afebrile for more than 24 hr. He is alert and oriented x3 without any complaints. (2) Abdominal pain Resolved without any intervention. (3) Leukopenia Patient was given supportive care and lab testing was done. All lab testing has been negative so far. Often the latter still pending. If any abnormalities , I will call patient date. Otherwise patient will follow up with primary care physician in 1 week and request records if needed. (4) right arm pain: Close to or IV line was. Venous Doppler negative for any hematoma or DVT. Likely muscle soreness no further interventions needed at this time. Vital Signs/Physical Exam: Temp Pulse Resp BP Pulse Ox 97.6 F 68 20 126/70 97 05/18/18 16:00 05/18/18 16:00 05/18/18 16:00 05/18/18 16:00 05/18/18 16:00 General: Alert, In no apparent distress HEENT: Atraumatic, PERRLA, EOMI Neck: Supple, JVD not distended Respiratory: Clear to auscultation bilaterally, Normal air movement Cardiovascular: Regular rate/rhythm, Normal S1 S2 Gastrointestinal: Normal bowel sounds, No tenderness Musculoskeletal: No tenderness Integumentary: No rashes Neurological: Normal speech, Normal tone, Normal affect Lymphatics: No axilla or inguinal lymphadenopathy Laboratory Data at Discharge: WBC 4.5 K/uL (4.3-10.9) D 05/18/18 12:55 Hgb 14.4 g/dL (13.6-17.9) 05/18/18 12:55 Hct 40.4 % (39.6-49.0) 05/18/18 12:55 Plt Count 266 K/uL (152-406) D 05/18/18 12:55 Sodium 136 mmol/L (136-145) 05/18/18 12:55 Potassium 4.0 mmol/L (3.5-5.1) 05/18/18 12:55 BUN 13 mg/dL (7-18) 05/18/18 12:55 Creatinine 0.90 mg/dL (0.55-1.3) 05/18/18 12:55 Glucose 117 mg/dL (74-106) H 05/18/18 12:55 Phosphorus 3.7 mg/dL (2.5-4.9) 05/15/18 05:58 Magnesium 2.5 mg/dL (1.8-2.4) H 05/15/18 05:58 Total Bilirubin 0.4 mg/dL (0.2-1.0) 05/18/18 12:55 AST 101 U/L (15-37) H D 05/18/18 12:55 ALT 178 U/L (12-78) H 05/18/18 12:55 Alkaline Phosphatase 91 U/L (45-117) 05/18/18 12:55 Lipase 154 U/L (73-393) 05/14/18 14:35 Home Medications: NK [No Home Meds] 05/15/18 Patient Discharge Instructions: Please follow with the primary care physician 1 week Diet: Regular Activity: Ad candido Followup: Domenica Knight DO, DO [Primary Care Provider] - Time spent managing pt's care (in minutes): 35
[2018-05-18 20:19] VITALS: BP 124/87; TEMP 98.3
[2018-05-18] MEDS: ACETAMINOPHEN 500 MG TAB PO PRN (20:22)
[2018-05-20 19:06] LABS: P-ANCA Anti-Myeloperoxidase Ab <1.0 AI (<1.0)
== END 2018-05-18 20:40 | disposition home or self-care (01) | DRG 864 ==
LOC: ER 12:26 → ERHOLD 05-15 00:52 → 4TH 05-15 02:20 → OBSVTOIN 05-17 08:59
PROVIDERS: ADMIT Hospitalist; ATTEND Family Medicine
PROC: 009U3ZX Drainage of Spinal Canal, Percutaneous Approach, Diagnostic (ICD-10-PCS; principal; 2018-05-14)
DX: R50.9 Fever, unspecified (principal); F17.210 Nicotine dependence, cigarettes, uncomplicated; D72.819 Decreased white blood cell count, unspecified; R00.0 Tachycardia, unspecified; R10.9 Unspecified abdominal pain; M79.601 Pain in right arm
CPT/HCPCS: 36415; 62270; 70450; 71046; 71260; 74177; 80048; 80053; 80074; 80076; 81003; 82533; 82728; 82945; 83605; 83615; 83690; 83735; 84100; 84145; 84157; 84439; 84443; 85025; 86021; 86038; 86140; 86308; 86403; 86430; 87040; 87070; 87081; 87177; 87205; 87209; 87389; 87804; 89050; 93005; 93306; 93971; 96361; 96374; 96375; 99285; G0378; J1170; J1720; J2270; J2405; J7030; J7512; Q9967

== ENCOUNTER 2018-12-13 13:23 | Emergency (ER) | payer BC ==
[2018-12-13 14:49] LABS: Absolute Lymphocytes (CBC) 2.1 K/uL (0.7-4.9); Absolute Monocytes 0.6 K/uL (0.1-1.3); Basophils % 0.6 % (0-1.3); Hematocrit 43.8 % (39.6-49.0); MPV 7.6 fL (7.6-11.3); Monocytes % 6.2 % (3.3-12.3); RBC Red Blood Cell Count 4.83 M/uL (4.33-5.43)
[2018-12-13] MEDS ORDERED: ONDANSETRON 4 MG/2 ML VIAL ONE (14:57)
[2018-12-13] MEDS ORDERED: MEPERIDINE HCL 25 MG/0.5 ML ONE (14:57)
[2018-12-13 15:19] LABS: BUN Blood Urea Nitrogen 12 mg/dL (7-18); Bicarbonate 29 mmol/L (21-32); Glucose Level 108 mg/dL (74-106); NT PRO-BNP 9 pg/mL (<125); Sodium Level 138 mmol/L (136-145); Troponin (Emerg Dept Use Only) < 0.02 ng/mL (0.0-0.045)
--- NOTE | 2018-12-13 15:24 | RAD REPORT ---
EXAM DESCRIPTION: RAD - Chest Single View - 12/13/2018 2:53 pm CLINICAL HISTORY: CHEST PAIN Chest pain. COMPARISON: Chest Pa And Lat (2 Views) dated 05/14/2018; CHEST PA AND LAT 2 VIEW dated 06/13/2013 FINDINGS: Portable technique limits examination quality. The lungs are grossly clear. The heart is normal in size. No displaced fractures. IMPRESSION: No acute intrathoracic process suspected.
--- NOTE | 2018-12-13 15:37 | EKG ---
Test Date: 2018-12-13 Test Time: 13:40:35 Crating And Moving Estimator: RIYA MEASUREMENT RESULTS: Intervals: Rate: 113 IL: 142 QRSD: 86 QT: 322 QTc: 441 [place]: P: 48 IL: 142 QRS: 53 T: 31 INTERPRETIVE STATEMENTS: Sinus tachycardia Otherwise normal ECG Compared to ECG 05/15/2018 11:02:32 Sinus rhythm no longer present Electronically Signed On 12-13-18 15:37:30 CDT by Gage Bedoya
--- NOTE | 2018-12-13 17:01 | ER ---
Nurse's Notes [facility] Name: Alfie Luque Age: 38 yrs Sex: Male : 1980 Arrival Date: 12/13/2018 Time: 13:26 Bed 15 Private MD: Diagnosis: Chest pain, unspecified Presentation: 12/13 13:38 Presenting complaint: Patient states: c/o chest pain 5/10 and tightness on left side rb1 radiates up the neck and to the left shoulder. C/o SOB. Denies fever, NVD. Transition of care: patient was not received from another setting of care. Onset of symptoms was December 13, 2018 at 11:00. Risk Assessment: Do you want to hurt yourself or someone else? Patient reports no desire to harm self or others. 13:38 Method Of Arrival: Wheelchair rb1 13:38 Acuity: LAKEISHA 3 rb1 14:48 Initial Sepsis Screen: Does the patient meet any 2 criteria? No. Patient's initial ph sepsis screen is negative. Does the patient have a suspected source of infection? No. Patient's initial sepsis screen is negative. Care prior to arrival: None. Triage Assessment: 13:41 General: Appears in no apparent distress. comfortable, Behavior is calm, cooperative. rb1 Pain: Complains of pain in anterior aspect of left upper chest Pain radiates to left shoulder Pain currently is 5 out of 10 on a pain scale. Neuro: Level of Consciousness is awake, alert, obeys commands, Oriented to person, place, time, situation. Cardiovascular: Rhythm is sinus tachycardia. Respiratory: Airway is patent Respiratory effort is even, unlabored, Respiratory pattern is regular, symmetrical. Derm: Skin is pink, warm \\T\\ dry. Historical: - Allergies: 13:41 NKDA; rb1 - PMHx: 13:41 None; rb1 - PSHx: 13:41 None; rb1 - Immunization history:: Adult Immunizations unknown. - Social history:: Smoking status: Patient uses tobacco products, smokes one-half pack cigarettes per day. - Family history:: not pertinent. - Ebola Screening: : No symptoms or risks identified at this time. - Hospitalizations: : No recent hospitalization is reported. Screenin:48 Abuse screen: Denies threats or abuse. Denies injuries from another. Nutritional ph screening: No deficits noted. Tuberculosis screening: No symptoms or risk factors identified. Fall Risk None identified. Assessment: 14:49 General: Appears in no apparent distress. uncomfortable, obese, well groomed, Behavior ph is calm, cooperative, appropriate for age. Pain: Complains of pain in anterior aspect of left upper chest Pain radiates to anterior aspect of left shoulder and left neck Pain began 3 hours ago. Neuro: Level of Consciousness is awake, alert, obeys commands, Oriented to person, place, time, situation. Cardiovascular: Reports chest pain, diaphoresis, shortness of breath, Denies nausea, vomiting, Capillary refill < 3 seconds in bilateral fingers Patient's skin is warm and dry. Chest pain quality is "tightness". Respiratory: Reports shortness of breath on exertion Airway is patent Respiratory effort is even, unlabored, Breath sounds are clear bilaterally. GI: Abdomen is round non-distended, Patient currently denies abdominal pain, diarrhea, nausea, vomiting. Derm: Skin is intact, is healthy with good turgor, Skin is pink, warm \\T\\ dry. Musculoskeletal: Circulation, motion, and sensation intact. Range of motion: intact in all extremities. 16:00 Reassessment: Patient appears in no apparent distress at this time. Patient and/or ph family updated on plan of care and expected duration. Pain level reassessed. Patient is alert, oriented x 3, equal unlabored respirations, skin warm/dry/pink. Pt reports that pain has improved after IV pain medication. 17:38 Reassessment: Patient appears in no apparent distress at this time. Patient and/or ph family updated on plan of care and expected duration. Pain level reassessed. Patient is alert, oriented x 3, equal unlabored respirations, skin warm/dry/pink. Pt requesting to speak w/ ERP before d/c. Vital Signs: 13:41 BP 142 / 89; Pulse 119; Resp 19; Temp 98.1(O); Pulse Ox 98% on R/A; Weight 108.86 kg; rb1 Height 5 ft. 6 in. (167.64 cm); Pain 5/10; 15:02 BP 128 / 84; Pulse 114; Resp 22; Pulse Ox 98% on R/A; ph 15:59 BP 129 / 83; Pulse 104; Resp 20; Temp 97.9(O); Pulse Ox 98% on R/A; mh5 17:41 BP 121 / 93; Pulse 97; Resp 16; Temp 97.9; Pulse Ox 99% on R/A; ph 13:41 Body Mass Index 38.74 (108.86 kg, 167.64 cm) rb1 Vitals: 17:41 Cardiac Rhythm Assessment Sinus rhythm. ph ED Course: 13:26 Patient arrived in ED. mr 13:40 Triage completed. rb1 13:40 EKG done, by sterilisation technician. reviewed by Lei Shultz MD. at1 13:41 Arm band placed on right wrist. rb1 14:08 Carla Griggs, RN is Primary Nurse. ph 14:16 Lei Shultz MD is Attending Physician. rn 14:47 Initial lab(s) drawn, by tx, sent to lab. Inserted saline lock: 20 gauge in right ph antecubital area, using aseptic technique. Blood collected. Patient maintains SpO2 saturation greater than 95% on room air. 14:48 Patient has correct armband on for positive identification. Bed in low position. Call ph light in reach. Side rails up X 1. satellite project site monitor on. Pulse ox on. NIBP on. Door closed. Noise minimized. Warm blanket given. 14:53 XRAY Chest (1 view) In Process Unspecified. EDMS 17:00 Jabier Do MD is Referral Physician. rn 17:25 Repeat EKG was done. sm3 18:05 No provider procedures requiring assistance completed. IV discontinued, intact, ph bleeding controlled, No redness/swelling at site. Pressure dressing applied. Administered Medications: 15:01 Drug: Demerol 25 mg Route: IVP; Site: right antecubital; ph 15:30 Follow up: Response: No adverse reaction; Pain is decreased ph 15:01 Drug: Zofran 4 mg Route: IVP; Site: right antecubital; ph 17:40 Follow up: Response: No adverse reaction; Nausea is decreased ph 17:32 Drug: TORadol 30 mg Route: IVP; Site: left antecubital; ph 17:41 Follow up: Response: No adverse reaction ph Outcome: 17:01 Discharge ordered by . rn 18:06 Discharged to home ambulatory. ph 18:06 Condition: good 18:06 Discharge instructions given to patient, Instructed on discharge instructions, follow up and referral plans. Demonstrated understanding of instructions, follow-up care. 18:06 Patient left the ED. ph Signatures: Dispatcher [employer] EDNV MatthewTisha mr Shultz, MD SANJNAA Odom rn Katty Garcia, card assembler EKG [facility] Carla Griggs RN RN Julia Sherwood RN RN marylin Jorgensen, Dhara [facility] Queenie Helton [facility]
--- NOTE | 2018-12-13 17:02 | EDPHYS ---
Physician Documentation [facility] Name: Alfie Luque Age: 38 yrs Sex: Male : 1980 Arrival Date: 12/13/2018 Time: 13:26 Bed 15 Private MD: ED Physician Lei Shultz HPI: 12/13 14:39 This 38 yrs old Male presents to ER via Wheelchair with complaints of rn Shoulder Pain, Chest Pain. 14:39 The patient or guardian reports chest pain that is located primarily in the anterior rn chest wall, left. The pain radiates to the left arm, Associated signs and symptoms: Pertinent positives: None. Pertinent negatives: abdominal pain, cough, palpitations, recent travel, shortness of breath, syncope, vomiting. The chest pain is described as a heaviness. Duration: The patient or guardian reports multiple episodes. Modifying factors: The symptoms are alleviated by nothing. the symptoms are aggravated by nothing. Severity of pain: At its worst the pain was mild in the emergency department the pain is unchanged. The patient has not experienced similar symptoms in the past. The patient has not recently seen a physician. REports left sided chest tightness, radiates to left shoulder, intermittent, happened at rest, nothing makes it better or worse. NO famhx of early cardiac problems. Also reports longstanding feeling of being "winded", but is also active smoker and dipper. NO chest trauma, no cough, no hemoptysis, no DVT/PE risk factors. . Historical: - Allergies: 13:41 NKDA; rb1 - PMHx: 13:41 None; rb1 - PSHx: 13:41 None; rb1 - Immunization history:: Adult Immunizations unknown. - Social history:: Smoking status: Patient uses tobacco products, smokes one-half pack cigarettes per day. - Family history:: not pertinent. - Ebola Screening: : No symptoms or risks identified at this time. - Hospitalizations: : No recent hospitalization is reported. ROS: 14:39 Constitutional: Negative for fever, chills, and weight loss, Eyes: Negative for injury, rn pain, redness, and discharge, Neck: Negative for injury, pain, and swelling, Cardiovascular: Negative for palpitations, and edema, Respiratory: Negative for cough, wheezing, and pleuritic chest pain, Abdomen/GI: Negative for abdominal pain, nausea, vomiting, diarrhea, and constipation, MS/Extremity: Negative for injury and deformity, Skin: Negative for injury, rash, and discoloration, Neuro: Negative for headache, weakness, numbness, tingling, and seizure. Exam: 14:39 Constitutional: This is a well developed, well nourished patient who is awake, alert, rn appears anxious Head/Face: Normocephalic, atraumatic. Eyes: Pupils equal round and reactive to light, extra-ocular motions intact. Lids and lashes normal. Conjunctiva and sclera are non-icteric and not injected. Cornea within normal limits. Periorbital areas with no swelling, redness, or edema. Cardiovascular: tachycardic, regular, no murmur Respiratory: MIld tachypnea, clear bilateral breath sounds Abdomen/GI: soft, non-tender MS/ Extremity: Pulses equal, no cyanosis. Neurovascular intact. Full, normal range of motion. Equal circumference. Neuro: Awake and alert, GCS 15, oriented to person, place, time, and situation. Cranial nerves II-XII grossly intact. Motor strength 5/5 in all extremities. Sensory grossly intact. 16:00 ECG was reviewed by the Attending Physician. rn Vital Signs: 13:41 BP 142 / 89; Pulse 119; Resp 19; Temp 98.1(O); Pulse Ox 98% on R/A; Weight 108.86 kg; rb1 Height 5 ft. 6 in. (167.64 cm); Pain 5/10; 15:02 BP 128 / 84; Pulse 114; Resp 22; Pulse Ox 98% on R/A; ph 15:59 BP 129 / 83; Pulse 104; Resp 20; Temp 97.9(O); Pulse Ox 98% on R/A; mh5 17:41 BP 121 / 93; Pulse 97; Resp 16; Temp 97.9; Pulse Ox 99% on R/A; ph 13:41 Body Mass Index 38.74 (108.86 kg, 167.64 cm) rb1 MDM: 14:16 Patient medically screened. rn 16:59 Differential diagnosis: acute myocardial infarction, acute pericarditis, anxiety, rn coronary artery disease chest wall pain, costochondritis, pleurisy, pneumothorax, stable angina. Data reviewed: vital signs, nurses notes, lab test result(s), EKG, radiologic studies, plain films, and as a result, I will discharge patient. Counseling: I had a detailed discussion with the patient and/or guardian regarding: the historical points, exam findings, and any diagnostic results supporting the discharge/admit diagnosis, lab results, radiology results, the need for outpatient follow up, to return to the emergency department if symptoms worsen or persist or if there are any questions or concerns that arise at home. Special discussion: I discussed with the patient/guardian in detail that at this point there is no indication for admission to the hospital. It is understood, however, that if the symptoms persist or worsen the patient needs to return immediately for re-evaluation. Based on the history and exam findings, there is no indication for further emergent testing or inpatient evaluation. I discussed with the patient/guardian the need to see the glove turner and former automatic for further evaluation of the symptoms. I discussed with the patient/guardian the need to see the product distribution specialist for further evaluation of the symptoms. I discussed with the patient/guardian the need to see the primary care provider for further evaluation of the symptoms. ED course: Recommended cardiology/pcp f/u for stress/echo and given return precautions. No sign of ischemia on either ECG here. . 12/13 14:28 Order name: Basic Metabolic Panel; Complete Time: 15:12/13 14:28 Order name: CBC with Diff; Complete Time: 15:12/13 14:28 Order name: NT PRO-BNP; Complete Time: 15:12/13 14:28 Order name: Troponin (emerg Dept Use Only); Complete Time: 15:12/13 14:28 Order name: XRAY Chest (1 view); Complete Time: 15:59 12/13 14:29 Order name: D-Dimer; Complete Time: 15:59 12/13 14:28 Order name: EKG; Complete Time: 14:28 12/13 14:28 Order name: Cardiac monitoring; Complete Time: 14:12/13 14:28 Order name: EKG - Nurse/Tech; Complete Time: 14:12/13 14:28 Order name: IV Saline Lock; Complete Time: 14:46 12/13 16:21 Order name: EKG; Complete Time: 16:22 12/13 14:28 Order name: Labs collected and sent; Complete Time: 14:46 13 14:28 Order name: O2 Per Protocol; Complete Time: 14:46 rn 12/13 14:28 Order name: O2 Sat Monitoring; Complete Time: 14:46 rn 12/13 16:21 Order name: EKG - Nurse/Tech; Complete Time: 16:51 rn EC:00 Rate is 113 beats/min. Rhythm is regular. QRS [place] is Normal. UT interval is normal. rn QRS interval is normal. QT interval is normal. No Q waves. T waves are Normal. No ST changes noted. Clinical impression: Sinus tachycardia. Interpreted by me. Reviewed by me. Administered Medications: 15:01 Drug: Demerol 25 mg Route: IVP; Site: right antecubital; ph 15:30 Follow up: Response: No adverse reaction; Pain is decreased ph 15:01 Drug: Zofran 4 mg Route: IVP; Site: right antecubital; ph 17:40 Follow up: Response: No adverse reaction; Nausea is decreased ph 17:32 Drug: TORadol 30 mg Route: IVP; Site: left antecubital; ph 17:41 Follow up: Response: No adverse reaction ph Disposition: 12/13/18 17:01 Discharged to Home. Impression: Chest pain, unspecified. - Condition is Stable. - Discharge Instructions: Nonspecific Chest Pain. - Medication Reconciliation Form, Thank You Letter, Antibiotic Education, Prescription Opioid Use form. - Work release form (12/14/18 08:37). bd - Follow up: Jabier Do MD; When: As needed; Reason: Recheck today's complaints, Re-evaluation by your physician. - Problem is new. - Symptoms have improved. Signatures: Dispatcher [employer] EDMS Lei Shultz MD MD rn Hall, Patricia, RN RN ph Julia Sherwood RN RN [facility] Chiquita Spann bd Corrections: (The following items were deleted from the chart) 18:06 17:01 12/13/2018 17:01 Discharged to Home. Impression: Chest pain, unspecified. ph Condition is Stable. Forms are Medication Reconciliation Form, Thank You Letter, Antibiotic Education, Prescription Opioid Use. Follow up: Jabier Do; When: As needed; Reason: Recheck today's complaints, Re-evaluation by your physician. Problem is new. Symptoms have improved. rn
[2018-12-13] MEDS ORDERED: KETOROLAC 30 MG/ML INJ ONE (17:41)
--- NOTE | 2018-12-13 19:09 | EKG ---
Test Date: 2018-12-13 Test Time: 16:51:57 Customer Data Technician: RIYA MEASUREMENT RESULTS: Intervals: Rate: 105 [place]: 148 QRSD: 90 QT: 336 QTc: 444 Graham: P: 48 [place]: 148 QRS: 48 T: 35 INTERPRETIVE STATEMENTS: Sinus tachycardia Possible Left atrial enlargement Borderline ECG Compared to ECG 12/13/2018 13:40:35 No significant changes Electronically Signed On 12-13-18 19:09:20 CDT by Gage Bedoya
[2018-12-13 22:08] VITALS: TEMP 97.9
[2018-12-13 22:09] VITALS: BP 121/93; O2SAT 99
== END 2018-12-13 18:06 | disposition home or self-care (01) ==
LOC: ER 13:23
DX: R07.9 Chest pain, unspecified (principal); F17.210 Nicotine dependence, cigarettes, uncomplicated
CPT/HCPCS: 36415; 71045; 80048; 83880; 84484; 85025; 85379; 93005; 96374; 96375; 99285; J2175; J2405

== ENCOUNTER 2024-05-05 22:52 | Emergency (ER) | payer BC ==
--- OUTSIDE RECORDS SUMMARY | 2024-05-05 22:54 | XMS REPORT | Continuity of Care Document ---
Author Name Unknown Address [address] [id number] [facility] Address [address] [place] [address] Care Team Providers Care Clinical Exercise Physiologist Name Role Phone PCP, PATIENT DOES NOT HAVE A Primary Care Physic Lexis Parks PA-C Attending Clinician [phone] Unknown, Attending Attending Clinician UnavailLEXIS Gomes Attending Clinician Unavailable King ANTOINE MD, James C Attending Clinician [phone] DANIEL SAUNDERS III Attending Clinician Unavailabl e Doctor Unassigned, [place] Attending Clinician U fabian Mosquera RN, Rachel Kohler Attending Clinician Unavailab SUSAN Graham Attending Clinician Unavailable Susan Briones MD Attending Clinician [phone] ELIZA HOLLY Attending Clinician Unavailable Eliza Parra Attending Clinician [phone] Payers Payer Name Policy Type Policy Number Effective Date Expirati on Date Source Problems Condition Name Condition Details Condition Category Status Onset Date Resolution Date Last Treatment Date Treating Clinician Comments Source Hypogonadi sm Hypogonadi sm Problem Active 04-13 00:00: 00 [facility] Benign prostatic hyperplasi a Benign Prostatic Hyperplasi a Problem Active 04-13 00:00: 00 [facility] No known active problems No known active problems Disease [facility] Allergies, Adverse Reactions, Alerts Allergy Name Allergy Type Status Severity Reaction(s) Onset Date Inactive Date Treating Clinician Comments Source NO KNOWN ALLERGIE S Drug Class Active [facility] Social History Social Habit Start Date Stop Date Quantity Comments Source Gender identity [facility] Sexual orientation [facility] History of Social function 2023-04-15 00:00:00 2023-04-15 00:00:00 [facility] Exposure to SARS-CoV-2 (event) 2022-06-29 00:00:00 2022-07-09 15:41:00 Not sure [facility] Tobacco use and exposure 2022-01-07 00:00:00 2022-01-07 00:00:00 Smokeless tobacco non-user [facility] Sex Assigned At 1980 00:00:00 1980 00:00:00 [facility] Smoking Status Start Date Stop Date Source Never Smoker [facility] Medications Ordered Medication Name Filled Medication Name Start Date Stop Date Current Medication? Ordering Clinician Indication Dosage Frequency Signature (SIG) Comments Components Source amoxicillin -clavulanat e (AUGMENTIN) 875-125 mg per tablet 04-15 00:00: 00 Yes [id number] 1{tbl} Take 1 tablet by mouth in the morning and 1 tablet in the evening. [facility] chlorhexidi ne 0.12 % mouthwash 04-15 00:00: 00 Yes [id number] 15mL Swish and spit out 15 mL in the morning and 15 mL in the evening. [facility] naproxen (NAPROSYN) 500 mg tablet 2021-08 00:00: 00 Yes [id number] 500mg Take 1 tablet by mouth in the morning and 1 tablet in the evening. [facility] methocarbam oL 500 mg tablet 2021-08 00:00: 00 07-17 05:59 :00 No [id number] 500mg Take 1 tablet by mouth in the morning and 1 tablet in the evening. Do all this for [address] [facility] bromphenira mine-pseudo ephedrine-D M (BROMFED DM) 2-30-10 mg/5 mL syrup 02-17 00:00: 00 Yes [id number] 5mL Take 5 mL by mouth 4 (four) times daily as needed for Congestion /Allergies . [facility] guaiFENesin 400 mg tablet 02-17 00:00: 00 Yes [id number] 400mg Take 1 tablet by mouth every 4 (four) hours as needed for Cough. [facility] albuterol 90 mcg/actuati on inhaler 02-17 00:00: 00 Yes [id number] 2{puff} Inhale 2 Puffs every 6 (six) hours as needed for Shortness of Breath. [facility] triamcinolo ne acetonide (KENALOG) injection 40 mg 01-08 03:00: 00 01-08 01:55 :00 No [id number] [facility] hydrOXYzine 25 mg tablet 01-07 00:00: 00 Yes [id number] 25mg Take 1 tablet by mouth every 6 (six) hours as needed for Itching. [facility] triamcinolo ne acetonide 0.1 % ointment 01-07 00:00: 00 Yes [id number] Apply to area(s) 2 (two) times daily. [facility] predniSONE 20 mg tablet 01-07 00:00: 00 01-20 04:59 :00 No [id number] Take 3 tablets by mouth daily for 3 days, THEN 2 tablets daily for 3 days, THEN 1 tablet daily for 3 days, THEN 0.5 tablets daily for [address] [facility] testosteron e cypionate 200 mg/mL injection 12-01 00:00: 00 Yes INJECT 1 ML IN THE MUSCLE EVERY WEEK [facility] tadalafil 5 mg daily tadalafil 5 mg daily No tadalafil 5 mg daily [facility] tamsulosin 0.4 mg capsule TAKE 1 CAPSULE BY MOUTH EVERY EVENING tamsulosin 0.4 mg capsule TAKE 1 CAPSULE BY MOUTH EVERY EVENING No tamsulosin 0.4 mg capsule TAKE 1 CAPSULE BY MOUTH EVERY EVENING [facility] Vital Signs Vital Name Observation Time Observation Value Comments S ourletty Body Weight 2024-04-14 00:00:00 205 [lb_av] [facility] BMI (Body Mass Index) 2024-04-14 00:00:00 33.1 kg/m2 [facility] Height 2024-04-14 00:00:00 66 [in_i] [facility] Systolic blood pressure 2023-04-16 01:21:00 148 mm[Hg] [facility] Diastolic blood pressure 2023-04-16 01:21:00 92 mm[Hg] [facility] Heart rate 2023-04-16 01:20:00 88 /min [facility] Body temperature 2023-04-16 01:20:00 37.33 Dimple [facility] Respiratory rate 2023-04-16 01:20:00 16 /min [facility] Body height 2023-04-16 01:20:00 167.6 cm [facility] Body weight 2023-04-16 01:20:00 92.987 kg [facility] BMI 2023-04-16 01:20:00 33.09 kg/m2 [facility] Oxygen saturation in Arterial blood by Pulse oximetry 2023-04-16 01:20:00 98 /min [facility] Systolic blood pressure 2022-07-09 21:55:00 161 mm[Hg] [facility] Diastolic blood pressure 2022-07-09 21:55:00 103 mm[Hg] [facility] BMI 2022-07-09 21:54:00 33.09 kg/m2 [facility] Oxygen saturation in Arterial blood by Pulse oximetry 2022-07-09 21:54:00 98 /min [facility] Heart rate 2022-07-09 21:54:00 80 /min [facility] Body temperature 2022-07-09 21:54:00 36.78 Dimple [facility] Respiratory rate 2022-07-09 21:54:00 18 /min [facility] Body height 2022-07-09 21:54:00 167.6 cm [facility] Body weight 2022-07-09 21:54:00 92.987 kg [facility] Systolic blood pressure 2022-02-17 22:34:00 129 mm[Hg] [facility] Diastolic blood pressure 2022-02-17 22:34:00 82 mm[Hg] [facility] Heart rate 2022-02-17 22:34:00 88 /min [facility] 2022-02-17 22:34:00 38.06 Dimple [facility] Respiratory rate 2022-02-17 22:34:00 16 /min [facility] Body height 2022-02-17 22:34:00 167.6 cm [facility] Body weight 2022-02-17 22:34:00 95.255 kg [facility] BMI 2022-02-17 22:34:00 33.89 kg/m2 [facility] Oxygen saturation in Arterial blood by Pulse oximetry 2022-02-17 22:34:00 98 /min [facility] Systolic blood pressure 2022-01-08 01:50:00 126 mm[Hg] [facility] Diastolic blood pressure 2022-01-08 01:50:00 89 mm[Hg] [facility] Heart rate 2022-01-08 01:50:00 93 /min [facility] Body temperature 2022-01-08 01:50:00 36.83 Dimple [facility] Respiratory rate 2022-01-08 01:50:00 16 /min [facility] Body weight 2022-01-08 01:50:00 95.709 kg [facility] Oxygen saturation in Arterial blood by Pulse oximetry 2022-01-08 01:50:00 97 /min [facility] Procedures Procedure Date / Time Performed Performing Clinicia n Source ASSIGNMENT OF BENEFITS 2022-07-09 21:43:34 Docto r Unassigned, [place] [facility] POCT MOLECULAR STREP 2022-02-17 22:42:00 Susan Briones [facility] Encounters Start Date/Time End Date/Time Encounter Type Admission Type Attending Clinicians Care Facility Care Department Encounter ID Source 2024-04-14 00:00:00 2024-04-14 00:00:00 Emmett Bautista MD: [id number], [place] [address] , Ph. [facility] JOHANNA Martinez [id number] [facility] 2023-04-15 20:20:00 2023-04-15 20:40:00 Urgent Care Lexis Green Unknown, Attending [facility] 1.840.114 350.1.13.10 [id number] [facility] 2023-04-15 20:20:00 2023-04-15 20:20:00 Outpatient LEXIS MOSER [facility] [id number] [facility] 2022-07-09 15:40:00 2022-07-09 16:00:00 Urgent Care Daniel Saunders Unknown, Attending [facility] 1.840.114 [id number] [id number] [facility] 2022-07-09 15:40:00 2022-07-09 15:40:00 Outpatient DANIEL ARRIAGA III [facility] [id number] [facility] 2022-07-09 00:00:00 2022-07-09 00:00:00 Orders Only Doctor Unassigned, [place] [facility] 1.840.114 [id number] [id number] [facility] 2022-02-18 00:00:00 2022-02-18 00:00:00 Letter (Out) Rachel Mosquera [facility] 1..114 350.1.13.10 4.2.7.2.[id number] [facility] 2022-02-17 17:20:00 2022-02-17 17:56:56 Outpatient R SUSAN BRIONES [facility] [id number] [facility] 2022-02-17 17:20:00 2022-02-17 17:56:56 Urgent Care Susan Briones [facility] [id number] [id number] [id number] [facility] 2022-01-07 20:40:00 2022-01-07 21:00:56 Outpatient R [facility] [id number] [facility] 2022-01-07 20:40:00 2022-01-07 21:00:56 [facility] [id number] [id number] [id number] [facility] Results Test Description Test Time Test Comments Results Result Co mments Source [facility]
[2024-05-05] MEDS ORDERED: HYDROCODONE/APAP 7.5/325 MG TAB ONE (23:11)
--- NOTE | 2024-05-06 00:38 | EDPHYS ---
Physician Documentation [facility] Name: Alfie Luque Age: 44 yrs Sex: Male : 1980 Arrival Date: 05/05/2024 Time: 22:52 Bed DX3 Private MD: ED Physician Mark Farooq HPI: 05/05 23:14 This 44 yrs old Male presents to ER via Ambulatory with complaints of Wrist Injury. sb4 23:14 The patient or guardian reports injury, pain, swelling, tenderness. The complaints sb4 affect the right wrist diffusely. Context: The problem was sustained at work. Onset: The symptoms/episode began/occurred today. Modifying factors: The symptoms are alleviated by holding still, the symptoms are aggravated by nothing. Associated signs and symptoms: The patient has no apparent associated signs or symptoms. Compartment Syndrome negative for numbness, tingling, positive for pain. The patient has not experienced similar symptoms in the past. The patient has not recently seen a physician. Historical: - Allergies: 23:10 NKDA; cm10 - PMHx: 23:12 Overactive prostate; cm10 - Immunization history:: Adult Immunizations up to date. - Infectious Disease History:: Denies. - Social history:: Smoking status: Patient denies any tobacco usage or history of. ROS: 05/06 00:34 Constitutional: Negative for fever, chills, and weight loss, sb4 MS/extremity: Positive for injury or acute deformity, pain, swelling, tenderness, of the outer aspect of right palm, All other systems are negative, Exam: 00:34 Hand exam: ROM: limited active range of motion due to pain, limited passive range of sb4 motion due to pain, pain with palpation ulnar aspect right wrist, Circulation is intact in all extremities. Pulses: are normal with no appreciated deficits, sensation intact. 00:34 Constitutional: This is a well developed, well nourished patient who is awake, alert, and in no acute distress. Head/Face: Normocephalic, atraumatic. Eyes: Extra-ocular motions intact. Periorbital areas with no swelling, redness, or edema. ENT: Mucous membranes moist. Skin: Warm, dry with normal turgor. Normal color with no rashes, no lesions, and no evidence of cellulitis. Vital Signs: 05/05 23:11 BP 134 / 95; Pulse 85; Resp 16; Temp 97.4(IR); Pulse Ox 100% on R/A; Weight 90.72 kg; cm10 Height 5 ft. 6 in. ; Pain 01/10; 05/06 01:06 BP 128 / 88; Pulse 82; Resp 17; Pulse Ox 100% ; vc1 05/05 23:11 Body Mass Index 32.28 (90.72 kg, 167.64 cm) cm10 05/05 23:11 Pain Scale: Adult cm10 MDM: 05/05 23:10 Patient medically screened. sb4 05/06 00:36 Data reviewed: vital signs, nurses notes, radiologic studies, and as a result, I will sb4 discharge patient. Counseling: I had a detailed discussion with the patient and/or guardian regarding the historical points, exam findings, and any diagnostic results supporting the discharge/admit diagnosis, radiology results. 05/05 23:10 Order name: Wrist Right 3 View XRAY sb4 05/06 00:33 Order name: Ulnar Gutter splint; Complete Time: 01:04 sb4 Administered Medications: 05/05 23:15 Drug: Hydrocodone-Acetaminophen PO (7.5 mg-325 mg) 1 tabs PO once Route: PO; cm10 05/06 01:04 Follow up: Response: No adverse reaction; Marked relief of symptoms vc1 00:59 Drug: Ketorolac IM 30 mg IM once Route: IM; Site: left deltoid; vc1 01:04 Follow up: Response: Medication administered at discharge. vc1 Disposition: 22:52 Co-signature as Attending Physician, Mark Farooq MD I agree with the assessment sp4 and plan of care. I reviewed the patient's care provided by the Advanced Practice Provider and agree with the diagnosis and treatment plan. Disposition Summary: 05/06/24 00:37 Discharge Ordered Notes: Location: Home sb4 Problem: new sb4 Symptoms: have improved sb4 Condition: Stable sb4 Diagnosis - Acute triquetral fracture right wrist sb4 Followup: sb4 - With: Santo Lincoln MD - When: As needed - Reason: Recheck today's complaints, Re-evaluation by your physician Discharge Instructions: - Discharge Summary Sheet sb4 - Wrist Fracture Treated With Immobilization, [id number] sb4 Forms: - Work release form vc1 - Patient Portal Instructions sb4 - Leadership Thank You Letter sb4 Signatures: Dispatcher [employer] Rosina Andrea RN RN vc1 Catherine Hines PA-C PA-C sb4 Mark Farooq MD MD sp4 Arlen Jorgensen RN RN cm10 Corrections: (The following items were deleted from the chart) 05/05 23:11 23:10 PMHx: None; cm10 cm10 23:13 23:10 PMHx: Overactice Prostate; cm10 cm10
--- NOTE | 2024-05-06 00:38 | ER ---
Nurse's Notes [facility] Name: Alfie Luque Age: 44 yrs Sex: Male : 1980 Arrival Date: 05/05/2024 Time: 22:52 Bed DX3 Private MD: Diagnosis: Acute triquetral fracture right wrist Presentation: 05/05 23:11 Chief complaint: Patient states: Right wrist pain S/P fall today. Pt has noted swelling cm10 to right wrist. Coronavirus screen: Client denies travel out of the [place] in the last 14 days. Ebola Screen: Patient denies travel to an Ebola-affected area in the 21 days before illness onset. No symptoms or risks identified at this time. Initial Sepsis Screen: Does the patient meet any 2 criteria? No. Patient's initial sepsis screen is negative. Does the patient have a suspected source of infection? No. Patient's initial sepsis screen is negative. Risk Assessment: Do you want to hurt yourself or someone else? Patient reports no desire to harm self or others. Onset of symptoms was May 05, 2024. 23:11 Method Of Arrival: Ambulatory cm10 23:11 Acuity: LAKEISHA 4 cm10 Triage Assessment: 23:12 General: Appears in no apparent distress. comfortable, Behavior is calm, cooperative. cm10 Pain: Complains of pain in dorsal aspect of right wrist. Neuro: No deficits noted. Level of Consciousness is awake, alert, obeys commands, Oriented to person, place, time, situation, Appropriate for age. Respiratory: No deficits noted. Airway is patent Respiratory effort is even, unlabored, Respiratory pattern is regular, symmetrical. Historical: - Allergies: 23:10 NKDA; cm10 - PMHx: 23:12 Overactive prostate; cm10 - Immunization history:: Adult Immunizations up to date. - Infectious Disease History:: Denies. - Social history:: Smoking status: Patient denies any tobacco usage or history of. Screenin/04 00:00 [facility] ED Fall Risk Assessment (Adult) History of falling in the last 3 months, vc1 including since admission No falls in past 3 months (0 pts) Confusion or Disorientation No (0 pts) Intoxicated or Sedated No (0 pts) Impaired Gait No (0 pts) Mobility Assist Device Used No (0 pt) Altered Elimination No (0 pt) Score/Fall Risk Level 0 - 2 = Low Risk Oriented to surroundings, Maintained a safe environment, Educated pt \T\ family on fall prevention, incl call for assistance when getting out of bed. Abuse screen: Denies threats or abuse. Nutritional screening: No deficits noted. Tuberculosis screening: No symptoms or risk factors identified. Assessment: 01:04 Reassessment: Patient appears in no apparent distress at this time. No changes from vc1 previously documented assessment. Patient and/or family updated on plan of care and expected duration. Pain level reassessed. Patient is alert, oriented x 3, equal unlabored respirations, skin warm/dry/pink. General: Appears in no apparent distress. uncomfortable, Behavior is calm, cooperative, appropriate for age. Pain: Complains of pain in dorsal aspect of right wrist. Respiratory: Airway is patent Respiratory effort is even, unlabored, Respiratory pattern is regular, symmetrical. Derm: Skin is intact, is healthy with good turgor, Skin is dry, Skin is normal, Skin temperature is warm. Musculoskeletal: Circulation, motion, and sensation intact. Range of motion: limited in all extremities, Reports pain in dorsal aspect of right wrist. Vital Signs: 05/05 23:11 BP 134 / 95; Pulse 85; Resp 16; Temp 97.4(IR); Pulse Ox 100% on R/A; Weight 90.72 kg; cm10 Height 5 ft. 6 in. ; Pain 01/10; 05/06 01:06 BP 128 / 88; Pulse 82; Resp 17; Pulse Ox 100% ; vc1 05/05 23:11 Body Mass Index 32.28 (90.72 kg, 167.64 cm) cm10 05/05 23:11 Pain Scale: Adult cm10 ED Course: 05/05 22:53 Patient arrived in ED. im 22:54 Catherine Hines PA-C is PHCP. sb4 22:54 Mark Farooq MD is Attending Physician. sb4 23:12 Triage completed. cm10 23:12 Arm band placed on left wrist. Patient placed in waiting room. cm10 23:44 Wrist Right 3 View XRAY In Process Unspecified. EDMS 05/06 00:37 Santo Lincoln MD is Referral Physician. sb4 00:59 Rosina Grider RN is Primary Nurse. vc1 01:07 Patient has correct armband on for positive identification. Seen in diagnostic chair. vc1 Provided Education on: f/u with ortho. 01:07 No provider procedures requiring assistance completed. Patient did not have IV access vc1 during this emergency room visit. Administered Medications: 05/05 23:15 Drug: Hydrocodone-Acetaminophen PO (7.5 mg-325 mg) 1 tabs PO once Route: PO; cm10 05/06 01:04 Follow up: Response: No adverse reaction; Marked relief of symptoms vc1 00:59 Drug: Ketorolac IM 30 mg IM once Route: IM; Site: left deltoid; vc1 01:04 Follow up: Response: Medication administered at discharge. vc1 Medication: 01:08 VIS not applicable for this client. vc1 Outcome: 00:37 Discharge ordered by . sb4 01:07 Discharged to home ambulatory, vc1 01:07 Condition: good 01:07 Discharge instructions given to patient, Instructed on discharge instructions, follow up and referral plans. Demonstrated understanding of instructions, follow-up care, splint care, 01:10 Patient left the ED. vc1 Signatures: Dispatcher [employer] EDMS Rosina Grider RN RN vc1 Catherine Hines, PA-C PA-C sb4 Tejal Blanchard Clarissa, RN RN cm10 Corrections: (The following items were deleted from the chart) 05/05 23:11 23:10 PMHx: None; cm10 cm10 23:13 23:10 PMHx: Overactice Prostate; cm10 cm10
[2024-05-06] MEDS ORDERED: KETOROLAC 30 MG/ML INJ ONE (00:53)
--- NOTE | 2024-05-06 06:15 | RAD REPORT ---
EXAM DESCRIPTION: Wrist Right 3 View CLINICAL HISTORY: 44 years Male, PAIN COMPARISON: None. IMPRESSION: Suggested acute triquetral fracture with dorsal wrist swelling. Joint spaces are preserved. Bone mineralization is normal. Electronically signed by: Cliff Noe DO 05/06/2024 12:30 AM CDT RP 9 Due to temporary technical issues with the [facility] reporting system, reports are being parrish d by the in-house radiologist without review as a courtesy to ensure prompt reporting the interpreting radiologist is fully responsible for the content of the report. Transcribed Date/Time: 05/06/2024 6:15 AM
[2024-05-06 12:16] VITALS: TEMP 97.4; O2SAT 100
[2024-05-06 12:18] VITALS: BP 128/88
== END 2024-05-06 01:10 | disposition home or self-care (01) ==
LOC: ER 22:52
PROC: 2W3EX1Z Immobilization of Right Hand using Splint (ICD-10-PCS; principal; 2024-05-06)
DX: S62.111A Displaced fracture of triquetrum [cuneiform] bone, right wrist, initial encounter for closed fracture (principal)
CPT/HCPCS: 96372; 99284

== ENCOUNTER 2024-06-14 21:43 | Emergency (ER) | payer BC, OTHER ==
--- OUTSIDE RECORDS SUMMARY | 2024-06-14 21:45 | XMS REPORT | Continuity of Care Document ---
Author Name Unknown Address [address] [facility] [place]. [address] [id number] [facility] Address [address] [facility] [address] [place] [address] Care Team Providers Care History Department Chair Name Role Phone PCP, PATIENT DOES NOT HAVE A Primary Care Physic Lexis Parks PA-C Attending Clinician [phone] Unknown, Attending Attending Clinician UnavailLEXIS Gomes Attending Clinician Unavailable King ANTOINE MD, James C Attending Clinician [phone] DANIEL SAUNDERS III Attending Clinician Unavailabl e Doctor Unassigned, Cuartelez Attending Clinician U fabian Mosquera RN, Rachel Kohler Attending Clinician Unavailab SUSAN Graham Attending Clinician Unavailable Susan Briones MD Attending Clinician ELIZA HOLLY Attending Clinician Unavailable Eliza Parra Attending Clinician [phone] Payers Payer Name Policy Type Policy Number Effective Date Expirati on Date Source Problems Condition Name Condition Details Condition Category Status Onset Date Resolution Date Last Treatment Date Treating Clinician Comments Source Hypogonadi sm Hypogonadi sm Problem Active 04-13 00:00: [address] [facility] Benign prostatic hyperplasi a Benign Prostatic Hyperplasi a Problem Active 04-13 00:00: [address] [facility] No known active problems No known active problems Disease [facility] Allergies, Adverse Reactions, Alerts Allergy Name Allergy Type Status Severity Reaction(s) Onset Date Inactive Date Treating Clinician Comments Source NO KNOWN ALLERGIE S Drug Class Active [facility] Social History Social Habit Start Date Stop Date Quantity Comments Source Gender identity [facility] Sexual orientation [facility] History of Social function 2023-04-15 00:00:00 2023-04-15 00:00:00 [facility] Exposure to SARS-CoV-2 (event) 2022-06-29 00:00:00 2022-07-09 15:41:00 Not sure [facility] Tobacco use and exposure 2022-01-07 00:00:00 2022-01-07 00:00:00 Smokeless tobacco non-user [facility] Sex Assigned At 1980 00:00:00 1980 00:00:00 [facility] Smoking Status Start Date Stop Date Source Never Smoker [facility] Medications Ordered Medication Name Filled Medication Name Start Date Stop Date Current Medication? Ordering Clinician Indication Dosage Frequency Signature (SIG) Comments Components Source amoxicillin -clavulanat e (AUGMENTIN) 875-125 mg per tablet 04-15 00:00: 00 Yes [id number] 1{tbl} Take 1 tablet by mouth in the morning and 1 tablet in the evening. [facility] chlorhexidi ne 0.12 % mouthwash 04-15 00:00: 00 Yes [id number] 15mL Swish and spit out 15 mL in the morning and 15 mL in the evening. [facility] naproxen (NAPROSYN) 500 mg tablet 2021-08 00:00: 00 Yes [id number] 500mg Take 1 tablet by mouth in the morning and 1 tablet in the evening. [facility] methocarbam oL 500 mg tablet 2021-08 00:00: 00 07-17 05:59 :00 No [id number] 500mg Take 1 tablet by mouth in the morning and 1 tablet in the evening. Do all this for 7 days. [facility] bromphenira mine-pseudo ephedrine-D M (BROMFED DM) 2-30-10 mg/5 mL syrup 02-17 00:00: 00 Yes [id number] 5mL Take 5 mL by mouth 4 (four) times daily as needed for Congestion /Allergies . [facility] guaiFENesin 400 mg tablet 02-17 00:00: 00 Yes [id number] 400mg Take 1 tablet by mouth every 4 (four) hours as needed for Cough. [facility] albuterol 90 mcg/actuati on inhaler 02-17 00:00: 00 Yes [id number] 2{puff} Inhale 2 Puffs every 6 (six) hours as needed for Shortness of Breath. [facility] triamcinolo ne acetonide (KENALOG) injection 40 mg 01-08 03:00: 00 01-08 01:55 :00 No [id number] [facility] hydrOX[facility] 25 mg tablet 01-07 00:00: 00 Yes [id number] 25mg Take 1 tablet by mouth every 6 (six) hours as needed for Itching. [facility] triamcinolo ne acetonide 0.1 % ointment 01-07 00:00: 00 Yes [id number] Apply to area(s) 2 (two) times daily. [facility] predniSONE 20 mg tablet 01-07 00:00: 00 01-20 04:59 :00 No [id number] Take 3 tablets by mouth daily for 3 days, THEN 2 tablets daily for 3 days, THEN 1 tablet daily for 3 days, THEN 0.5 tablets daily for 3 days. [facility] testosteron e cypionate 200 mg/mL injection 12-01 00:00: 00 Yes INJECT 1 ML IN THE MUSCLE EVERY WEEK [facility] tadalafil 5 mg daily tadalafil 5 mg daily No tadalafil [address] [facility] tamsulosin 0.4 mg capsule TAKE 1 CAPSULE BY MOUTH EVERY EVENING tamsulosin 0.4 mg capsule TAKE 1 CAPSULE BY MOUTH EVERY EVENING No tamsulosin 0.4 mg capsule TAKE 1 CAPSULE BY MOUTH EVERY EVENING [facility] Vital Signs Vital Name Observation Time Observation Value Comments S ourletty Body Weight 2024-04-14 00:00:00 205 [lb_av] Sam stobrie [facility] BMI (Body Mass Index) 2024-04-14 00:00:00 33.1 kg/m2 [facility] Height 2024-04-14 00:00:00 66 [in_i] [facility] Systolic blood pressure 2023-04-16 01:21:00 148 mm[Hg] [facility] Diastolic blood pressure 2023-04-16 01:21:00 92 mm[Hg] [facility] Heart rate 2023-04-16 01:20:00 88 /min Un[facility] Body temperature 2023-04-16 01:20:00 37.33 Dimple [facility] Respiratory rate 2023-04-16 01:20:00 16 /min [facility] Body height 2023-04-16 01:20:00 167.6 cm [facility] Body weight 2023-04-16 01:20:00 92.987 kg [facility] BMI 2023-04-16 01:20:00 33.09 kg/m2 [facility] Oxygen saturation in Arterial blood by Pulse oximetry 2023-04-16 01:20:00 98 /min [facility] Systolic blood pressure 2022-07-09 21:55:00 161 mm[Hg] [facility] Diastolic blood pressure 2022-07-09 21:55:00 103 mm[Hg] [facility] BMI 2022-07-09 21:54:00 33.09 kg/m2 [facility] Oxygen saturation in Arterial blood by Pulse oximetry 2022-07-09 21:54:00 98 /min [facility] Heart rate 2022-07-09 21:54:00 80 /min [facility] Body temperature 2022-07-09 21:54:00 36.78 Dimple [facility] Respiratory rate 2022-07-09 21:54:00 18 /min [facility] Body height 2022-07-09 21:54:00 167.6 cm [facility] Body weight 2022-07-09 21:54:00 92.987 kg [facility] Systolic blood pressure 2022-02-17 22:34:00 129 mm[Hg] [facility] Diastolic blood pressure 2022-02-17 22:34:00 82 mm[Hg] [facility] Heart rate 2022-02-17 22:34:00 88 /min [facility] 2022-02-17 22:34:00 38.06 Dimple [facility] Respiratory rate 2022-02-17 22:34:00 16 /min [facility] Body height 2022-02-17 22:34:00 167.6 cm [facility] Body weight 2022-02-17 22:34:00 95.255 kg [facility] BMI 2022-02-17 22:34:00 33.89 kg/m2 [facility] Oxygen saturation in Arterial blood by Pulse oximetry 2022-02-17 22:34:00 98 /min [facility] Systolic blood pressure 2022-01-08 01:50:00 126 mm[Hg] [facility] Diastolic blood pressure 2022-01-08 01:50:00 89 mm[Hg] [facility] Heart rate 2022-01-08 01:50:00 93 /min Un[facility] Body temperature 2022-01-08 01:50:00 36.83 Dimple [facility] Respiratory rate 2022-01-08 01:50:00 16 /min [facility] Body weight 2022-01-08 01:50:00 95.709 kg [facility] Oxygen saturation in Arterial blood by Pulse oximetry 2022-01-08 01:50:00 97 /min [facility] Procedures Procedure Date / Time Performed Performing Clinicia n Source ASSIGNMENT OF BENEFITS 2022-07-09 21:43:34 Docto r Unassigned, Cuartelez [facility] POCT MOLECULAR STREP 2022-02-17 22:42:00 Susan Briones [facility] Encounters Start Date/Time End Date/Time Encounter Type Admission Type Attending Clinicians Care Facility Care Department Encounter ID Source 2024-04-14 00:00:00 2024-04-14 00:00:00 Emmett Bautista MD: [id number], [place] [address] , Ph. [facility] JOHANNA Martinez [id number] [id number] [facility] 2023-04-15 20:20:00 2023-04-15 20:40:00 Urgent Care Lexis Green Unknown, Attending [facility] [id number] [id number] [facility] 2023-04-15 20:20:00 2023-04-15 20:20:00 Outpatient LEXIS MOSER [facility] [id number] [facility] 2022-07-09 15:40:00 2022-07-09 16:00:00 Urgent Care Daniel Saunders Unknown, Attending [facility] [id number] [id number] [facility] 2022-07-09 15:40:00 2022-07-09 15:40:00 Outpatient DANIEL ARRIAGA III [facility] [id number] [facility] 2022-07-09 00:00:00 2022-07-09 00:00:00 Orders Only Doctor Unassigned, Cuartelez [facility] 1.840.114 [id number] [id number] [facility] 2022-02-18 00:00:00 2022-02-18 00:00:00 Letter (Out) Rachel Mosquera [facility] 1..114 [id number] [id number] [id number] [facility] 2022-02-17 17:20:00 2022-02-17 17:56:56 Outpatient R SUSAN BRIONES [facility] [id number] [facility] 2022-02-17 17:20:00 2022-02-17 17:56:56 Urgent Care Susan Briones [facility] [id number] [id number] [facility] 2022-01-07 20:40:00 2022-01-07 21:00:56 Outpatient R [facility] [id number] [facility] 2022-01-07 20:40:00 2022-01-07 21:00:56 [facility] [id number] [facility] Results Test Description Test Time Test Comments Results Result Co mments Source [facility]
--- NOTE | 2024-06-14 22:32 | RAD REPORT ---
EXAM: XR LEFT HAND HISTORY: Pain. PAIN COMPARISON: None TECHNIQUE: Multiple projections of the left hand submitted. FINDINGS: Fracture is present involving the fourth metacarpal neck.. No dislocation seen. Mild adjace nt soft tissue swelling.
[2024-06-14] MEDS ORDERED: HYDROCODONE/APAP 7.5/325 MG TAB ONE (22:46)
[2024-06-14] MEDS ORDERED: IBUPROFEN 400 MG TAB ONE (22:46)
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
[2024-06-15 00:45] VITALS: BP 139/82; TEMP 97; O2SAT 100
== END 2024-06-15 | disposition home or self-care (01) ==
LOC: ER 21:43
PROC: 2W3FX1Z Immobilization of Left Hand using Splint (ICD-10-PCS; principal; 2024-06-15)
DX: S62.335A Displaced fracture of neck of fourth metacarpal bone, left hand, initial encounter for closed fracture (principal)
CPT/HCPCS: 99283